=== PATIENT | female | born 1925 | race Caucasian/White ===

== ENCOUNTER 2016-06-19 12:44 | Emergency (ER) | payer OTHER ==
[~2016-06-19] VITALS: Ht 147.3 cm; Wt 54.4 kg
[~2016-06-19 12:44] MED LIST: ASPIRIN CHILDRE81 MG PO; ATENOLOL/CHLORT1 TA1 PO; ATENOLOL100 MG PO; ATORVASTATIN CA40 M1 PO; ATORVASTATIN CA40 MG PO; CARDIZEM CD120 M2 PO; DIAZEPAM PO; ELIQUIS2.5 M1 PO; HYDROCHLOROTH12.5 M3 PO; PERCOCET 325 MG1 TA2 PO; PROAIR HFA8.5 GM INH; ROZEREM8 M1 PO; TEGRETOL 100MG100 MG PO; TEGRETOL200 MG PO; TRAMADOL50 MG PO; TYLENOL325 M1 PO; VITAMIN D1000 IU PO; XANAX0.5 MG PO
--- NOTE | 2016-06-19 13:14 | ED MVC/FALL/TRAUMA COMPLAINT ---
History of Present Illness General Chief Complaint: Laceration Procedure Stated Complaint: FLAP LACERATION TO L LOWER LEG PER DAUGHTER Source: patient, family Exam Limitations: no limitations Allergies Coded Allergies: codeine (UNKNOWN 07/29/15) Reconcile Medications Acetaminophen (Tylenol) 325 MG TABLET 650 MG PO Q6P PRN PAIN Albuterol Sulfate (Proair Hfa) 8.5 GM HFA.AER.AD 2 PUF INH PRN ASTHMA ( Reported) Apixaban (Eliquis) 2.5 MG TABLET 2.5 MG PO BID blood thinner Aspirin (Children's Aspirin) 81 MG CTB 81 MG PO DAILY stroke Atenolol 100 MG TABLET 1 TAB PO DAILY hypertension (Reported) Atorvastatin Calcium (Lipitor) 40 MG TAB 40 MG PO 1700 Stroke Carbamazepine (Tegretol) 200 MG TABLET 1 TAB PO BID neuralgia (Reported) Cephalexin (Keflex) 500 MG CAPSULE 1 CAP PO TID skin Cholecalciferol (Vitamin D3) 1,000 IU TAB 1,000 IU PO DAILY vit d deficiency Diltiazem HCl (Cardizem Cd) 120 MG CAP.ER.24H 180 MG PO DAILY afib Hydrochlorothiazide 12.5 MG CAPSULE 1 CAP PO DAILY DIURETIC (Reported) Mirtazapine 15 MG TABLET 1 TAB PO QPM SLEEP (Reported) Quetiapine Fumarate 50 MG TABLET 1 TAB PO QPM SLEEP (Reported) Ramelteon (Rozerem) 8 MG TABLET 8 MG PO AT BEDTIME sleep Triage Note: PT TO ED WITH DAUGHTER FOR SKIN TEAR TO RIGHT ARREDONDO. HAPPENED THIS AM. PT CUT LEG ON A METAL BAR. UNKNOWN LAST TETANUS SHOT. PT IS ON ELIQUIS. Triage Nurses Notes Reviewed? yes HPI: Patient is an 89-year-old female brought in by her daughter for evaluation of wound to her left anterior leg. Patient reportedly tried to climb out of bed at approximately 3 AM this morning when her leg hit against the metal part of the bed causing a skin flap wound. Pain is minimal at rest, worsens with palpation. Patient's family member clean the area with alcohol this morning. Patient's visiting nurse came to the house this morning and recommended that the patient come to the emergency department for further evaluation. Unknown last tetanus immunization. Patient takes Eliquis, bleeding resolved prior to arrival. Denies head injury, decreased range of motion of the lower extremity. (PERCY LEIGH) Vital Signs & Intake/Output Vital Signs & Intake/Output Vital Signs Date Time Temp Pulse Resp B/P Pulse O2 O2 Flow FiO2 Ox Delivery Rate 06/19 1420 97.6 65 18 114/65 97 Room Air Room Air 06/19 1258 97.5 66 20 114/66 96 Room Air Past History Travel History Traveled to [place] past 21 day No Medical History Any Pertinent Medical History? 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 MOTHER ( AT 68 CVA). FATHER (ALCOHOL USE, DESEASED AT 72). Hx Contributory? No (PERCY LEIGH) Review of Systems Review of Systems Constitutional: Reports: no symptoms. Cardiovascular: Denies: chest pain. Gastrointestinal/Abdominal: Denies: abdominal pain. Musculoskeletal: Reports: see HPI. Skin: Reports: see HPI. Neurological/Psychological: Denies: numbness. (PERCY LEIGH) Physical Exam Physical Exam General Appearance: well developed/nourished, alert, awake Head: atraumatic Eyes: Bilateral: normal appearance. Ears, Nose, Throat, Mouth: hearing grossly normal Neck: normal inspection, full range of motion Respiratory: no respiratory distress Back: normal range of motion Extremities: See diagram. Wound to left mid anterior leg 9 cm x 10 cm "V" shaped superficial skin tear laceration. No visible or palpable foreign body. No active bleeding. Mild tenderness Neurologic/Psych: awake, alert Skin: warm/dry Diagram Body: 1) 9 cm 2) 10 cm Core Measures ACS in differential dx? No Severe Sepsis Present: No Septic Shock Present: No (PERCY LEIGH) Progress Differential Diagnosis: skin tear, foreign body, fracture Plan of Care: Discussed with Dr. Harper. Skin tear superficial. Does not appear that the wound would be amenable to sutures. Area prepped with Betadine, cleansed with sterile water. Steri-Strips placed across wound. Discussed with patient's daughter importance of wound care follow-up. Discussed with them providing a prescription for antibiotics if the area begins to show any signs of infection to then initiate antibiotics. W-10 filled out for home wound care nursing care. (PERCY LEIGH) Plan of Care: Discussed with Dr. Harper. Skin tear superficial. Does not appear that the wound would be amenable to sutures. Area prepped with Betadine, cleansed with sterile water. Steri-Strips placed across wound. Discussed with patient's daughter importance of wound care follow-up. Discussed with them providing a prescription for antibiotics if the area begins to show any signs of infection to then initiate antibiotics. W-10 filled out for home wound care nursing care. Departure Departure Time of Disposition: 1345 Disposition: HOME OR SELF CARE Condition: Stable Clinical Impression Primary Impression: Skin tear of left lower leg without complication Qualifiers: Encounter type: initial encounter Qualified Code: S81.812A - Laceration without foreign body, left lower leg, initial encounter Referrals: COBY BOLANOS MD (PCP/Family) Additional Instructions: Steri-Strips will flake off on their own. Change the dressing over the Steri- Strips daily. Follow-up with the wound care center within 1-2 weeks for recheck and further evaluation. Call in the morning for appointment. Return to the emergency department if redness spreading, fevers, pus from the wound, or worsening of symptoms. you are being provided with a prescription for keflex. I would not recommend starting this antibiotic unless there are any signs of developing infection. Departure Forms: Customer Survey General Discharge Information Prescriptions: Current Visit Scripts Cephalexin (Keflex) 1 CAP PO TID #21 CAP (PERCY LEIGH) PA/SOFTWARE ENGINEERING PROJECT MANAGER Co-Sign Statement Statement: ED Attending supervision documentation- [X] I saw and evaluated the patient. I have also reviewed all the pertinent lab results and diagnostic results. I agree with the findings and the plan of care as documented in the PA's/SOFTWARE ENGINEERING PROJECT MANAGER's documentation. [X] I have reviewed the ED Record and agree with the PA's/SOFTWARE ENGINEERING PROJECT MANAGER's documentation. [] Additions or exceptions (if any) to the PAs/SOFTWARE ENGINEERING PROJECT MANAGER's note and plan are summarized below: [] (LILLIAN PEPE,LANETTE)
[2016-06-19] MEDS ORDERED: KEFLEX500 M1 PO (13:48)
[2016-06-19] MEDS ORDERED: MIRTAZAPINE15 M2 PO (14:16)
[2016-06-19] MEDS ORDERED: QUETIAPINE FUMA50 M1 PO (14:17)
[2016-06-19] MEDS ORDERED: VITAMIN D31000 UNI1 PO (14:17)
[2016-06-19 14:20] VITALS: BP 114/65
--- NOTE | 2016-06-19 14:57 | NUR ---
2/4 CASE MGMT- SPO[facility] WITH [facility] FAXED FOR WOUND CARE.
== END 2016-06-19 14:35 ==
LOC: ERH 12:44
DX: S81.812A Laceration without foreign body, left lower leg, initial encounter (principal); W22.03XA Walked into furniture, initial encounter; Y92.003 Bedroom of unspecified non-institutional (private) residence as the place of occurrence of the external cause
CPT/HCPCS: 90471; 90714

== ENCOUNTER 2016-07-06 10:22 | Emergency (ER) | payer OTHER ==
[~2016-07-06] VITALS: Ht 147.3 cm; Wt 54.4 kg
[~2016-07-06 10:22] MED LIST changes: +KEFLEX500 M1 PO; +MIRTAZAPINE15 M2 PO; +QUETIAPINE FUMA50 M1 PO; +VITAMIN D31000 UNI1 PO
[2016-07-06] MEDS ORDERED: ELIQUIS2.5 M1 PO (10:50)
[2016-07-06] MEDS ORDERED: ADVIL200 M2 PO (10:53)
[2016-07-06] MEDS ORDERED: MULTI-DAY VITA1 EACH PO (10:54)
--- NOTE | 2016-07-06 11:05 | ED INFLUENZA/URI COMPLAINT ---
History of Present Illness General Chief Complaint: General Adult Stated Complaint: BIBA FAILURE TO THRIVE,DEHYDRATION Source: patient, family Exam Limitations: dementia Vital Signs & Intake/Output Vital Signs & Intake/Output Vital Signs Date Time Temp Pulse Resp B/P Pulse O2 O2 Flow FiO2 Ox Delivery Rate 07/06 1522 97.2 68 18 136/66 95 Room Air 07/06 1224 97.1 70 16 130/63 93 Room Air 07/06 1055 95 Room Air 07/06 1028 96.4 63 18 143/67 95 Room Air ED Intake and Output 07/07 0000 07/06 1200 Intake Total 1000 Output Total Balance 1000 Intake, IV 1000 Patient 120 lb Weight Allergies Coded Allergies: codeine (UNKNOWN 07/29/15) Reconcile Medications Acetaminophen (Tylenol) 325 MG TABLET 650 MG PO Q6P PRN PAIN Albuterol Sulfate (Proair Hfa) 8.5 GM HFA.AER.AD 2 PUF INH PRN ASTHMA ( Reported) Alprazolam (Xanax) 0.5 MG TABLET 1 TAB PO QHS PRN INSOMINA Apixaban (Eliquis) 2.5 MG TABLET 1 TAB PO D HEART (Reported) Aspirin (Children's Aspirin) 81 MG CTB 81 MG PO DAILY stroke Atenolol 100 MG TABLET 1 TAB PO DAILY hypertension (Reported) Atorvastatin Calcium (Lipitor) 40 MG TAB 40 MG PO 1700 Stroke Cholecalciferol (Vitamin D3) 1,000 IU TAB 1,000 IU PO DAILY vit d deficiency Diltiazem HCl (Cardizem Cd) 120 MG CAP.ER.24H 180 MG PO DAILY afib Hydrochlorothiazide 12.5 MG CAPSULE 1 CAP PO DAILY DIURETIC (Reported) Ibuprofen (Advil) 200 MG TABLET 200 MG PO EVERY 6HRS- NEEDED PAIN (Reported ) Mirtazapine 15 MG TABLET 1 TAB PO QPM SLEEP (Reported) Multivitamin (Multi-Day Vitamins) 1 EACH TABLET 1 TAB PO DAILY SUPPLEMENT ( Reported) Ramelteon (Rozerem) 8 MG TABLET 8 MG PO AT BEDTIME sleep Triage Note: PT BIBA FROM HOME FOR FAILURE TO THRIVE. PER VISITING NURSE PT HAS HAD POOR PO INTAKE X THE PAST 3 DAYS. PT ARRIVES WITH NO COMPLAINTS. ALERT TO BASELINE. PT HAS NO COMPLAINTS. IV EST BY EMS. AWAITING EVAL. Triage Nurses Notes Reviewed? yes HPI: 89-year-old female, history of dementia, CVA with chronic aphasia, here with her daughter, who along with her daughter, cancer patient. She lives with the other daughter. She is here with concerns of failure to thrive. Decreased appetite, poor by mouth intake for the last 3-5 days, decreased activity. She has had a cough and upper respiratory congestion, poor by mouth intake. History of urinary tract infection 2 weeks ago which was treated with antibiotics. Patient is not getting up and walking around or getting out of bed as much as usual. They deny any worsening confusion or dementia. Symptoms are moderate. They feel as though she is unsafe at home (PERCY WARD) Past History Travel History Traveled to [place] past 21 day No Medical History Any Pertinent Medical History? 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 MOTHER ( AT 68 CVA). FATHER (ALCOHOL USE, DESEASED AT 72). Hx Contributory? No (PERCY WARD) Review of Systems Review of Systems Constitutional: Reports: see HPI. EENTM: Reports: see HPI. Respiratory: Reports: see HPI. Cardiovascular: Reports: no symptoms. GI: Reports: no symptoms. Genitourinary: Reports: no symptoms. Musculoskeletal: Reports: no symptoms. Skin: Reports: no symptoms. Neurological/Psychological: Reports: see HPI. Hematologic/Endocrine: Reports: no symptoms. Immunologic/Allergic: Reports: no symptoms. All Other Systems: Reviewed and Negative (PERCY WARD) Physical Exam Physical Exam Ears, Nose, Throat: DRY MUCOUS MEMBRANES Comments: Well-developed well-nourished, elderly female looks stated age, pleasantly confused HEENT: Atraumatic, extraocular motion intact Neck: Supple, no lymphadenopathy Back: Nontender Respiratory: No respiratory distress, mild crackles throughout both lungs lower lobes Heart: Regular rate and rhythm no murmur Abdomen: Soft nontender nondistended Extremities: No edema, full range of motion, left anterior lower leg with a healing skin tear Neuro: Alert and confused, at baseline per her daughter Psych: Mood affect at baseline per her daughter Skin: Warm and dry, no rash on exposed skin Core Measures Severe Sepsis Present: No Septic Shock Present: No (SEBLE ARAIZA,PERCY) Progress Differential Diagnosis: influenza, meningitis, neutropenia, otitis, pneumonia, pharyngitis, sinusitis, renal failure, dehydration, failure to thrive, sepsis Plan of Care: Orders Procedure Date/time Status CULTURE,URINE 07/06 1048 Active URINALYSIS 07/06 1048 Complete MAGNESIUM 07/06 1048 Complete COMPREHENSIVE METABOLIC PANEL 07/06 1048 Complete CBC WITHOUT DIFFERENTIAL 07/06 1048 Complete EKG 07/06 1048 Active Laboratory Tests 07/06/16 1157: CBC w Diff NO MAN DIFF REQ, RBC 3.84 L, MCV 80.9 L, MCH 26.4 L, RDW 18.4 H, MPV 9.3, Gran % 67.1, Lymphocytes % 14.5 L, Monocytes % 11.8 H, Eosinophils % 4.9, Basophils % 1.7, Absolute Granulocytes 7.6 H, Absolute Lymphocytes 1.6, Absolute Monocytes 1.3 H, Absolute Eosinophils 0.6, Absolute Basophils 0.2, PUBS MCHC 32.6 L 07/06/16 1128: Urine Color YEL, Urine Clarity CLEAR, Urine pH 6.0, Ur Specific [place] 1.020, Urine Protein TRACE H, Urine Ketones NEG, Urine Nitrite NEG, Urine Bilirubin NEG, Urine Urobilinogen 0.2, Ur Leukocyte Esterase NEG, Ur Microscopic SEDIMENT EXAMINED, Urine RBC 25-50 H, Urine WBC RARE, Ur Epithelial Cells RARE, Hyaline Casts 1-3 H, Urine Mucus FEW, Urine Hemoglobin LARGE H, Urine Glucose NEG 07/06/16 1113: Anion Gap 7, Estimated GFR 59 L, BUN/Creatinine Ratio 30.0 H, Glucose 91, Calcium 8.2 L, Magnesium 2.0, Total Bilirubin 0.7, AST 21, ALT 23, Alkaline Phosphatase 77, Total Protein 6.4, Albumin 2.8 L, Globulin 3.6, Albumin/ Globulin Ratio 0.8 L Microbiology 07/06 1127 URINE ROUT: Urine Culture - RECD Diagnostic Imaging: Viewed by Me: Radiology Read. Discussed w/RAD: Radiology Read. CXR Impression: PATIENT: GALLITO WRIGHT PRESENT AGE: 89 PATIENT ACCOUNT NO: [id number] : [birth year] LOCATION: [facility] ORDERING PHYSICIAN: PERCY ARAIZA SERVICE DATE: 07/06/16 EXAM TYPE: RAD - XRY-PORTABLE CHEST XRAY EXAMINATION: XR PORTABLE CHEST CLINICAL INFORMATION: Cough, evaluate for pneumonia COMPARISON: 11/01/2015 TECHNIQUE: Portable AP view of the chest was obtained. FINDINGS: Lung volumes are symmetric. No focal consolidation is seen. No evidence of pneumothorax, pleural effusion, or pulmonary edema. The cardiac silhouette remains prominent. There is a redemonstrated moderate sized hiatal hernia. Calcification is present at the aortic arch. No acute osseous findings are seen. IMPRESSION: No acute cardiopulmonary findings. Hiatal hernia. DICTATED BY: MAN HERNANDEZ MD DATE/TIME DICTATED:07/06/161120 RETORT FEEDER GROUND BONE:NGUYEN Initial ED EKG: rate (60), AFIB, nonspecific ST T wave chg Rhythm Strip: atrial fibrillation Comments: Patient treated with 1 L of IV fluids. Infectious and dehydration workup started. Discussed results with patient and HER-2 daughters with case management at bedside. Patient has been ambulatory in the department, their main concern is that that she is becoming more and more difficult to manage in the evening time. I do not have a significant medical reason to keep her into the hospital as she is not acutely ill, her laboratory values are largely unremarkable, she has mild dehydration which she was given IV fluids. She has no urinary tract infection and no signs of pneumonia on x-ray. She has been on trazodone in the past for sleep and according to the daughters that gave her diarrhea and she was unable tolerate the medication. She was previously on Xanax with affect and we will place her back on Xanax. They were encouraged to look into long-term care facilities if she is becoming increasingly difficult to manage at home. They understand and agree with plan to take her home and follow-up with her primary care doctor in the next week or 2 and for possible refill of Xanax if this is effective in helping her with sundowning (PERCY WARD) Departure Departure Disposition: HOME OR SELF CARE Condition: Stable Clinical Impression Primary Impression: Dehydration Secondary Impressions: Dementia Qualifiers: Dementia type: unspecified type Dementia behavioral disturbance: with behavioral disturbance Qualified Code: F03.91 - Unspecified dementia with behavioral disturbance Referrals: COBY BOLANOS MD (PCP/Family) Additional Instructions: XANAX AT NIGHT FOR SLEEP. FOLLOW UP WITH YOUR DOCTOR FOR FURTHER EVALUATION AND TREATMENT Departure Forms: Customer Survey General Discharge Information Prescriptions: Current Visit Scripts Alprazolam (Xanax) 1 TAB PO QHS PRN INSOMINA #10 TAB (PERCY WARD) PA/ORACLE FINANCIALS DEVELOPER Co-Sign Statement Statement: ED Attending supervision documentation- x I saw and evaluated the patient. I have also reviewed all the pertinent lab results and diagnostic results. I agree with the findings and the plan of care as documented in the PA's/ORACLE FINANCIALS DEVELOPER's documentation. [] I have reviewed the ED Record and agree with the PA's/ORACLE FINANCIALS DEVELOPER's documentation. [] Additions or exceptions (if any) to the PAs/ORACLE FINANCIALS DEVELOPER's note and plan are summarized below: [] (FRED PEPE,CHAY)
--- NOTE | 2016-07-06 11:25 | RADIOLOGY REPORT ---
EXAMINATION: XR PORTABLE CHEST CLINICAL INFORMATION: Cough, evaluate for pneumonia COMPARISON: 11/01/2015 TECHNIQUE: Portable AP view of the chest was obtained. FINDINGS: Lung volumes are symmetric. No focal consolidation is seen. No evidence of pneumothorax, pleural effusion, or pulmonary edema. The cardiac silhouette remains prominent. There is a redemonstrated moderate sized hiatal hernia. Calcification is present at the aortic arch. No acute osseous findings are seen. IMPRESSION: No acute cardiopulmonary findings. Hiatal hernia.
[2016-07-06 12:08] LABS: ABSOLUTE GRANULOCYTE CT 7.6 /CUMM (1.4-6.5); ABSOLUTE LYMPH COUNT 1.6 /CUMM (1.2-3.4); MEAN CORPUSCULAR HGB 26.4 PG (27.0-31.0)
[2016-07-06 12:18] LABS: ABSOLUTE BASOPHIL COUNT 0.2 /CUMM (0.0-0.2); ABSOLUTE EOSINOPHIL COUNT 0.6 /CUMM (0.0-0.7); ABSOLUTE MONOCYTE COUNT 1.3 /CUMM (0.10-0.60); BASOPHIL % 1.7 % (0.0-2.0); EOSINOPHIL % 4.9 % (0-5); GRANULOCYTE % 67.1 % (42.2-75.2); HEMATOCRIT 31.1 % (37-47); MEAN CORPUSCULAR HGB CONC 32.6 G/DL (33.0-37.0); MEAN CORPUSCULAR VOLUME 80.9 FL (81.0-99.0); MEAN PLATELET VOLUME 9.3 FL (7.4-10.4); PLATELET COUNT 413 /CUMM (130-400); RBC DISTRIBUTION WIDTH 18.4 % (11.5-14.5); RED BLOOD CELL CT 3.84 /CUMM (4.20-5.40); WHITE BLOOD CELL COUNT 11.3 /CUMM (4.8-10.8)
[2016-07-06] MEDS ORDERED: XANAX0.5 M1 PO (15:00)
[2016-07-06 15:22] VITALS: BP 136/66
== END 2016-07-06 15:23 ==
LOC: ERH 10:22
PROVIDERS: Physician Assistant Surgical
DX: E86.0 Dehydration (principal); F03.90 Unspecified dementia, unspecified severity, without behavioral disturbance, psychotic disturbance, mood disturbance, and anxiety; R05 Cough; I10 Essential (primary) hypertension; Z87.891 Personal history of nicotine dependence
CPT/HCPCS: 81001; 87086; 93005; 93010

== ENCOUNTER 2016-08-05 04:54 | Inpatient (IN) | payer OTHER ==
[~2016-08-05] VITALS: Ht 154.9 cm; Wt 54.4 kg
[~2016-08-05 04:54] MED LIST changes: +ADVIL200 M2 PO; +MULTI-DAY VITA1 EACH PO; +XANAX0.5 M1 PO
--- NOTE | 2016-08-05 04:59 | ED MVC/FALL/TRAUMA COMPLAINT ---
History of Present Illness General Chief Complaint: Fall Stated Complaint: HIP PAIN S/P FALL Source: old records, EMS Exam Limitations: dementia Vital Signs & Intake/Output Vital Signs & Intake/Output Vital Signs Date Time Temp Pulse Resp B/P Pulse O2 O2 Flow FiO2 Ox Delivery Rate 08/05 0652 97.5 67 20 187/84 92 Room Air 08/05 0505 Room Air 08/05 0458 97.2 85 20 184/84 95 Room Air Allergies Coded Allergies: codeine (UNKNOWN 07/29/15) Reconcile Medications Acetaminophen (Tylenol) 325 MG TABLET 650 MG PO Q6P PRN PAIN Albuterol Sulfate (Proair Hfa) 8.5 GM HFA.AER.AD 2 PUF INH PRN ASTHMA ( Reported) Alprazolam (Xanax) 0.5 MG TABLET 1 TAB PO QHS PRN INSOMINA Apixaban (Eliquis) 2.5 MG TABLET 1 TAB PO D HEART (Reported) Aspirin (Children's Aspirin) 81 MG CTB 81 MG PO DAILY stroke Atenolol 100 MG TABLET 1 TAB PO DAILY hypertension (Reported) Atorvastatin Calcium (Lipitor) 40 MG TAB 40 MG PO 1700 Stroke Cholecalciferol (Vitamin D3) 1,000 IU TAB 1,000 IU PO DAILY vit d deficiency Diltiazem HCl (Cardizem Cd) 120 MG CAP.ER.24H 180 MG PO DAILY afib Hydrochlorothiazide 12.5 MG CAPSULE 1 CAP PO DAILY DIURETIC (Reported) Ibuprofen (Advil) 200 MG TABLET 200 MG PO EVERY 6HRS- NEEDED PAIN (Reported ) Mirtazapine 15 MG TABLET 1 TAB PO QPM SLEEP (Reported) Multivitamin (Multi-Day Vitamins) 1 EACH TABLET 1 TAB PO DAILY SUPPLEMENT ( Reported) Ramelteon (Rozerem) 8 MG TABLET 8 MG PO AT BEDTIME sleep Triage Nurses Notes Reviewed? yes HPI: Patient lives at home with her family. Patient has dementia and is unable to provide any history. Patient had an unwitnessed fall out of bed. Patient has side reveals but she is known to attempt to climb over the rails. Patient just family heard a crash and then found her on the floor. Patient was awake to her baseline upon family arrival at her bedside. Patient grabbed her left hip when her family got her up to a wheelchair. Upon EMS arrival they found continued pain in the left hip which seemed like it got worse with movement. Unknown about radiation, quality or quantity of the pain. (ADITYA PEPE,NERIS Geiger) Past History Medical History Any Pertinent Medical History? see below for history Neurological: CVA, APHASIA NEURALGIA EENT: tooth extraction bad teeth since 5 years Cardiovascular: hypertension, hyperlipidemia, bilateral leg edema Respiratory: NONE Gastrointestinal: NONE, colitis Hepatic: NONE Renal: NONE Musculoskeletal: chronic back pain, osteoarthritis, spinal stenosis Psychiatric: NONE Endocrine: NONE Blood Disorders: NONE Cancer(s): NONE [employer]/Reproductive: NONE History of MRSA: No History of VRE: No History of CDIFF: No Pneumonia Vaccine: 09/29/00 Tetanus Vaccine: 06/19/16 Surgical History Surgical History: non-contributory Psychosocial History Who do you live with Daughter Services at Home None What is your primary language Turkish Tobacco Use: Cognitive Impairment Family History Family History, If Any: BROTHER (THROAT CANCER, AT AGE 52 SECONDARY TO SMOKING). MOTHER ( AT 68 CVA). FATHER (ALCOHOL USE, DESEASED AT 72). Hx Contributory? No (ADITYA PEPE,NERIS Geiger) Review of Systems Review of Systems Constitutional: Reports: no symptoms. Musculoskeletal: Reports: see HPI, joint pain. (ADITYA PEPE,NERIS Geiger) Physical Exam Physical Exam General Appearance: well developed/nourished, awake, moderate distress Head: atraumatic, normal appearance Eyes: Bilateral: PERRL, EOMI. Ears, Nose, Throat, Mouth: hearing grossly normal, moist mucous membrane Neck: normal inspection, supple, full range of motion, no midline tenderness Respiratory: normal breath sounds, chest non-tender, no respiratory distress, lungs clear Cardiovascular: regular rate/rhythm, normal peripheral pulses Gastrointestinal: normal bowel sounds, soft, non-tender, no organomegaly Back: normal inspection, normal range of motion Extremities: PAIN TO LEFT HIP WITH ROM Neurologic/Psych: awake Skin: intact, normal color, warm/dry Core Measures ACS in differential dx? No Severe Sepsis Present: No Septic Shock Present: No (ADITYA PEPE,NERIS Geiger) Progress Differential Diagnosis: C/T/L spine injury, pelvis injury Plan of Care: Orders Procedure Date/time Status Saline Lock 08/05 728 Active Misc Message 08/05 728 Active ED Holding Orders 08/05 728 Active Vital Signs 08/05 728 Active Code Status 03/23 0729 Active EKG 08/05 632 Active Admit to inpatient 08/05 0632 Active Parada, Insertion/Removal/Asses 08/05 599 Active CULTURE,URINE 08/05 599 Active URINALYSIS 08/06 555 Complete PARTIAL THROMBOPLASTIN TIME 08/06 555 Complete PROTHROMBIN TIME 08/06 555 Complete COMPREHENSIVE METABOLIC PANEL 08/06 555 Complete CBC WITHOUT DIFFERENTIAL 08/06 555 Complete TYPE & SCREEN (NOT X-MATCH) 08/06 555 Active Laboratory Tests 08/05/16 0645: Urinalysis LIGHT H, Urine Color YEL, Urine Clarity CLEAR, Urine pH 6.5, Ur Specific [place] 1.015, Urine Protein NEG, Urine Ketones NEG, Urine Nitrite NEG, Urine Bilirubin NEG, Urine Urobilinogen 0.2, Ur Leukocyte Esterase NEG, Ur Microscopic SEDIMENT EXAMINED, Urine RBC 10-15 H, Urine WBC RARE, Urine Bacteria FEW H, Urine Hemoglobin MOD H, Urine Glucose NEG 08/05/16 0631: CBC w Diff MAN DIFF ORDERED, RBC 4.09 L, MCV 79.5 L, MCH 25.4 L, RDW 17.2 H, MPV 8.6, Gran % 92.4 H, Lymphocytes % 3.2 L, Monocytes % 3.1, Eosinophils % 1.1, Basophils % 0.2, Absolute Granulocytes 23.0 H, Segmented Neutrophils 91 H , Band Neutrophils 1, Absolute Lymphocytes 0.8 L, Lymphocytes 3 L, Monocytes 2 , Absolute Monocytes 0.8 H, Eosinophils 3, Absolute Eosinophils 0.3, Absolute Basophils 0, Platelet Estimate ADEQUATE, Polychromasia 1+, Hypochromic- Microcytic 1+, Poikilocytosis 2+, Ovalocytes 1+, Arbuckle Cells FEW, Elliptocytes FEW, Schistocytes RARE, PUBS MCHC 32.0 L, Fld Total RBCs Counted 100 08/05/16 0620: Anion Gap 7, Estimated GFR 59 L, BUN/Creatinine Ratio 30.0 H, Glucose 144 H, Calcium 9.2, Total Bilirubin 0.5, AST 30, ALT 32, Alkaline Phosphatase 97, Total Protein 7.2, Albumin 3.2 L, Globulin 4.0, Albumin/Globulin Ratio 0.8 L, PT 12.9 H, INR 1.23 H, APTT 29 Microbiology 08/05 644 URINE ROUT: Urine Culture - RECD Diagnostic Imaging: Viewed by Me: Radiology Read, CT Scan. Discussed w/RAD: Radiology Read, CT Scan. Radiology Impression: PATIENT: GALLITO WRIGHT PRESENT AGE: 89 PATIENT ACCOUNT NO: [id number] : [birth year] LOCATION: [facility] ORDERING PHYSICIAN: NERIS BURGESS MD SERVICE DATE: 08/05/16 EXAM TYPE: CAT - CT CERV SPINE WO IV CONTRAST; CT HEAD WO IV CONTRAST EXAMINATION: CT HEAD WITHOUT CONTRAST CT CERVICAL SPINE WITHOUT CONTRAST CLINICAL INFORMATION: Fall. COMPARISON: CT head 11/03/2015 TECHNIQUE: Imaging was performed from the skull base to vertex without intravenous administration of contrast. In addition, helical noncontrast CT imaging was acquired through the cervical spine and source images were reviewed along with axial reconstructions and sagittal and coronal MPRs. DLP: 960.52 mGy-cm FINDINGS: There is motion throughout the study limiting exam HEAD: No acute intracranial hemorrhage. No mass effect. No extra- axial collection. There is atrophy with prominence of the ventricles and the sulci and hypodensity of the periventricular white matter due to chronic small vessel ischemic disease. There is vascular calcifications of the internal carotid arteries bilaterally. There is multifocal encephalomalacia from old infarct in the left frontal and left parietal occipital lobe unchanged since prior study. There is also focal encephalomalacia now in the right parietal- occipital lobe adjacent to the trigone of the right lateral ventricle which is more pronounced than was seen on the prior CAT scan. The low-attenuation though suggest this is also an old infarct. Air-fluid level opacifies about 50% volume of the left sphenoid sinus. The right sphenoid sinus is entirely opacified. The mastoid air cells and middle ear cavities are normally aerated. CERVICAL SPINE: There is no evidence of acute cervical spine fracture. . No pre- or paravertebral soft tissue abnormality is identified. Multilevel degenerative spondylosis of the spine. Disc height narrowing C4-C5 to the disc level of C6-C7 with endplate spurs. There is facet joint arthrosis throughout the cervical spine most pronounced at the upper cervical spine facet joints bilaterally. Lung apices clear. Heavy vascular calcification of thoracic aorta IMPRESSION: Motion limits CAT scan of the head and cervical spine. 1. No acute intracranial pathology. Sinus disease of the sphenoid sinuses bilateral 2. No CT evidence of acute cervical spine fracture or traumatic subluxation. Multilevel degenerative spondylosis of cervical spine. DICTATED BY: BISHOP DIETRICH MD DATE/TIME DICTATED: 08/05/16535 LIBRARY CLERK:NGUYEN DATE/TIME TRANSCRIBED:08/05/16535 CONFIDENTIAL, DO NOT COPY WITHOUT APPROPRIATE AUTHORIZATION. <Electronically signed in Other Vendor System> SIGNED BY: BISHOP DIETRICH MD 08/05/16 0544, PATIENT: GALLITO WRIGHT PRESENT AGE: 89 PATIENT ACCOUNT NO: [id number] : [birth year] LOCATION: ER ORDERING PHYSICIAN: NERIS BURGESS MD SERVICE DATE: 08/05/16 EXAM TYPE: RAD - XRY-HIP 2-3 VIEWS, LEFT EXAMINATION: XR HIP, LEFT CLINICAL INFORMATION: Fall. Pain. COMPARISON: Left hip 10/10/2010 TECHNIQUE: Two views of the left hip. FINDINGS: Comminuted intratrochanteric fracture of left femur. Femoral head remains seated in the acetabulum. There is superior subluxation of the distal fracture fragment. Focal sclerotic lesion of the left sacral ala at the inferior sacroiliac joint . This was noted present on the prior left radiograph of the hip of 10/10/2010. This measures 2.3 x 1.7 cm. IMPRESSION: Comminuted intratrochanteric fracture of left femur. DICTATED BY: BISHOP DIETRICH MD DATE/TIME DICTATED:08/05/16609 LIBRARY CLERK:NGUYEN DATE/TIME TRANSCRIBED:08/05/16609 CONFIDENTIAL, DO NOT COPY WITHOUT APPROPRIATE AUTHORIZATION. <Electronically signed in Other Vendor System> SIGNED BY: BISHOP DIETRICH MD 08/05/1616 CXR Impression: PATIENT: GALLITO WRIGHT PRESENT AGE: 89 PATIENT ACCOUNT NO: [id number] : [birth year] LOCATION: ER ORDERING PHYSICIAN: NERIS BURGESS MD SERVICE DATE: 08/05/16 EXAM TYPE: RAD - XRY-CHEST XRAY, ONE VIEW ONLY EXAMINATION:\H\ \N\XR CHEST CLINICAL INFORMATION: Shortness of breath COMPARISON: Chest x-ray 07/06/2016 TECHNIQUE: AP portable view of the chest was obtained. 5:52 AM FINDINGS: Heart size enlarged. Thoracic aorta is uncoiled with calcifications of wall. Lungs are clear. No pulmonary vascular congestion or pleural effusion. There is a large hiatal hernia present. Compared to prior chest x-ray there is no change. IMPRESSION: No acute abnormality the chest. DICTATED BY: BISHOP DIETRICH MD DATE/TIME DICTATED:08/05/16608 LIBRARY CLERK:NGUYEN DATE/TIME TRANSCRIBED:08/05/16608 CONFIDENTIAL, DO NOT COPY WITHOUT APPROPRIATE AUTHORIZATION. <Electronically signed in Other Vendor System> SIGNED BY: BISHOP DIETRICH MD 08/05/16613 Hand-Off Endorsed To: KIMBERLY CASPER DO Endorsed Time: 710 Pending: other (HOSPITALIST CALLBACK) Comments: D/W DR. POLLARD, PT TO BE ADMITTED TO THE MEDICAL SERVICE AND WILL GO TO THE ER ONCE MEDICALLY CLEARED. (ADITYA PEPE,NERIS Geiger) Departure Departure Disposition: STILL A PATIENT Condition: Stable Clinical Impression Primary Impression: Intertrochanteric fracture of left hip Referrals: COBY BOLANOS MD (PCP/Family) Departure Forms: Customer Survey General Discharge Information Admission Note Documentation of Exam: Documentation of any treatments & extenuating circumstances including Concerns Regarding Discharge (functional status, medication knowledge or non-compliance, living conditions, etc.) that warrant an admission rather than observation: [ Patient requires a medical admission for her hip fracture. Patient is on adequate. Once patient is medically cleared she will require surgery. Patient required pain control.] (ADITYA PEPE,NERIS Geiger) Admission Note Spoke With: VEENA KOHLER MD Documentation of Exam: Documentation of any treatments & extenuating circumstances including Concerns Regarding Discharge (functional status, medication knowledge or non-compliance, living conditions, etc.) that warrant an admission rather than observation: 08/05/16 7:30 AM The patient was signed out to me by Dr. Burgess. He is been admitted to the hospitalist service for hip fracture. Dr. Bhagat is the orthopedist who was informed by Dr. Burgess. (KIMBERLY CASPER DO)
--- NOTE | 2016-08-05 05:44 | CT SCAN REPORT ---
EXAMINATION: CT HEAD WITHOUT CONTRAST CT CERVICAL SPINE WITHOUT CONTRAST CLINICAL INFORMATION: Fall. COMPARISON: CT head 11/03/2015 TECHNIQUE: Imaging was performed from the skull base to vertex without intravenous administration of contrast. In addition, helical noncontrast CT imaging was acquired through the cervical spine and source images were reviewed along with axial reconstructions and sagittal and coronal MPRs. DLP: 960.52 mGy-cm FINDINGS: There is motion throughout the study limiting exam HEAD: No acute intracranial hemorrhage. No mass effect. No extra-axial collection. There is atrophy with prominence of the ventricles and the sulci and hypodensity of the periventricular white matter due to chronic small vessel ischemic disease. There is vascular calcifications of the internal carotid arteries bilaterally. There is multifocal encephalomalacia from old infarct in the left frontal and left parietal occipital lobe unchanged since prior study. There is also focal encephalomalacia now in the right parietal-occipital lobe adjacent to the trigone of the right lateral ventricle which is more pronounced than was seen on the prior CAT scan. The low-attenuation though suggest this is also an old infarct. Air-fluid level opacifies about 50% volume of the left sphenoid sinus. The right sphenoid sinus is entirely opacified. The mastoid air cells and middle ear cavities are normally aerated. CERVICAL SPINE: There is no evidence of acute cervical spine fracture. . No pre- or paravertebral soft tissue abnormality is identified. Multilevel degenerative spondylosis of the spine. Disc height narrowing C4-C5 to the disc level of C6-C7 with endplate spurs. There is facet joint arthrosis throughout the cervical spine most pronounced at the upper cervical spine facet joints bilaterally. Lung apices clear. Heavy vascular calcification of thoracic aorta IMPRESSION: Motion limits CAT scan of the head and cervical spine. 1. No acute intracranial pathology. Sinus disease of the sphenoid sinuses bilateral 2. No CT evidence of acute cervical spine fracture or traumatic subluxation. Multilevel degenerative spondylosis of cervical spine.
--- NOTE | 2016-08-05 06:14 | RADIOLOGY REPORT ---
EXAMINATION:\H\ \N\XR CHEST CLINICAL INFORMATION: Shortness of breath COMPARISON: Chest x-ray 07/06/2016 TECHNIQUE: AP portable view of the chest was obtained. 5:52 AM FINDINGS: Heart size enlarged. Thoracic aorta is uncoiled with calcifications of wall. Lungs are clear. No pulmonary vascular congestion or pleural effusion. There is a large hiatal hernia present. Compared to prior chest x-ray there is no change. IMPRESSION: No acute abnormality the chest.
--- NOTE | 2016-08-05 06:16 | RADIOLOGY REPORT ---
EXAMINATION: XR HIP, LEFT CLINICAL INFORMATION: Fall. Pain. COMPARISON: Left hip 10/10/2010 TECHNIQUE: Two views of the left hip. FINDINGS: Comminuted intratrochanteric fracture of left femur. Femoral head remains seated in the acetabulum. There is superior subluxation of the distal fracture fragment. Focal sclerotic lesion of the left sacral ala at the inferior sacroiliac joint . This was noted present on the prior left radiograph of the hip of 10/10/2010. This measures 2.3 x 1.7 cm. IMPRESSION: Comminuted intratrochanteric fracture of left femur.
[2016-08-05 06:40] LABS: ABSOLUTE BASOPHIL COUNT 0 /CUMM (0.0-0.2); ABSOLUTE EOSINOPHIL COUNT 0.3 /CUMM (0.0-0.7); ABSOLUTE LYMPH COUNT 0.8 /CUMM (1.2-3.4); ABSOLUTE MONOCYTE COUNT 0.8 /CUMM (0.10-0.60); BASOPHIL % 0.2 % (0.0-2.0); EOSINOPHIL % 1.1 % (0-5); GRANULOCYTE % 92.4 % (42.2-75.2); HEMATOCRIT 32.5 % (37-47); MEAN CORPUSCULAR HGB 25.4 PG (27.0-31.0); MEAN CORPUSCULAR VOLUME 79.5 FL (81.0-99.0); MEAN PLATELET VOLUME 8.6 FL (7.4-10.4); PLATELET COUNT 363 /CUMM (130-400); RBC DISTRIBUTION WIDTH 17.2 % (11.5-14.5); RED BLOOD CELL CT 4.09 /CUMM (4.20-5.40); WHITE BLOOD CELL COUNT 24.9 /CUMM (4.8-10.8)
[2016-08-05 07:18] LABS: PT 12.9 SEC (9.4-12.5); PTT 29 SEC (25-37)
--- NOTE | 2016-08-05 07:51 | History & Physical ---
LATISHA PEPE,[facility] 08/05/16 0751: General Information and HPI MD Statement: I have seen and personally examined GALLITO WRIGHT and documented this H&P. The patient is a 89 year old F who presented with a patient stated chief complaint of [FALL]. Source of Information: family, old records Exam Limitations: dementia History of Present Illness: Note- due to the patient's advanced dementia, history of presenting illness was obtained from her daughter Jyotsna, who is also her power of insurance attorney. Per patient's daughter, she has a history of hypertension, atrial fibrillation on Eliquis, advanced dementia. She states that over the course of last couple months despite having bedrails they have noticed that Mrs. Romero does try and climb out of bed and attempt unsafe ambulation. This morning, they found her downstairs on the kitchen floor after they heard someone falling. Upon arriving to the kitchen, they noticed that her mom was lying on the floor next to the kitchen sink. Her only complaint of the time was left hip pain. She was unsure as to how she got there. Denied any head strike or loss of consciousness however the validity of this statement should be taken with a grain of salt considering the fact that she does have advanced dementia. During the time of my evaluation of the patient she was unable to provide a clear history or review of systems secondary to her advanced dementia. Her only complaint was left hip pain. Allergies/Medications Allergies: Coded Allergies: codeine (UNKNOWN 07/29/15) Home Med list Acetaminophen (Tylenol) 325 MG TABLET 650 MG PO Q6P PRN PAIN Albuterol Sulfate (Proair Hfa) 8.5 GM HFA.AER.AD 2 PUF INH PRN ASTHMA ( Reported) Alprazolam (Xanax) 0.5 MG TABLET 1 TAB PO QHS PRN INSOMINA Apixaban (Eliquis) 2.5 MG TABLET 1 TAB PO D HEART (Reported) Aspirin (Children's Aspirin) 81 MG CTB 81 MG PO DAILY stroke Atenolol 100 MG TABLET 1 TAB PO DAILY hypertension (Reported) Atorvastatin Calcium (Lipitor) 40 MG TAB 40 MG PO 1700 Stroke Cholecalciferol (Vitamin D3) 1,000 IU TAB 1,000 IU PO DAILY vit d deficiency Diltiazem HCl (Cardizem Cd) 120 MG CAP.ER.24H 180 MG PO DAILY afib Hydrochlorothiazide 12.5 MG CAPSULE 1 CAP PO DAILY DIURETIC (Reported) Ibuprofen (Advil) 200 MG TABLET 200 MG PO EVERY 6HRS- NEEDED PAIN (Reported ) Mirtazapine 15 MG TABLET 1 TAB PO QPM SLEEP (Reported) Multivitamin (Multi-Day Vitamins) 1 EACH TABLET 1 TAB PO DAILY SUPPLEMENT ( Reported) Ramelteon (Rozerem) 8 MG TABLET 8 MG PO AT BEDTIME sleep Past History Travel History Traveled to [place] past 21 day No Medical History Neurological: CVA, APHASIA NEURALGIA EENT: tooth extraction bad teeth since 5 years Cardiovascular: hypertension, hyperlipidemia, bilateral leg edema Respiratory: NONE Gastrointestinal: NONE, colitis Hepatic: NONE Renal: NONE Musculoskeletal: chronic back pain, osteoarthritis, spinal stenosis Psychiatric: NONE Endocrine: NONE Blood Disorders: NONE Cancer(s): NONE SUPERVISING BROKER/Reproductive: NONE History of MRSA: No History of VRE: No History of CDIFF: No Tetanus Vaccine: 06/19/16 Surgical History Surgical History: non-contributory ECHO Results (as available) EF% 60 Past Family/Social History Family History Relations & Conditions if any BROTHER (THROAT CANCER, AT AGE 52 SECONDARY TO SMOKING). MOTHER ( AT 68 CVA). FATHER (ALCOHOL USE, DESEASED AT 72). Psychosocial History Services at Home: None Review of Systems Review of Systems Constitutional: Reports: see HPI. Exam & Diagnostic Data Last 24 Hrs of Vital Signs/I&O Vital Signs Date Time Temp Pulse Resp B/P Pulse O2 O2 Flow FiO2 Ox Delivery Rate 08/05 0652 97.5 67 20 187/84 92 Room Air 08/05 0505 Room Air 08/05 0458 97.2 85 20 184/84 95 Room Air Intake & Output 08/05 1600 08/05 0800 08/05 0000 Intake Total 0 Output Total 300 Balance -300 Intake, Oral 0 Output, Urine 300 Patient 120 lb Weight Physical Exam General Appearance Alert, Cooperative, Mild Distress Skin has small break downs of skin scattered over both arms HEENT Atraumatic, PERRLA, EOMI Cardiovascular Regular Rate, Normal S1, Normal S2 Lungs Clear to Auscultation, Normal Air Movement Abdomen Normal Bowel Sounds, Soft Extremities left hip tender on palpation Last 24 Hrs of Labs/Fidel: Laboratory Tests 08/05/16 0645: Urinalysis LIGHT H, Urine Color YEL, Urine Clarity CLEAR, Urine pH 6.5, Ur Specific Anderson 1.015, Urine Protein NEG, Urine Ketones NEG, Urine Nitrite NEG, Urine Bilirubin NEG, Urine Urobilinogen 0.2, Ur Leukocyte Esterase NEG, Ur Microscopic SEDIMENT EXAMINED, Urine RBC 10-15 H, Urine WBC RARE, Urine Bacteria FEW H, Urine Hemoglobin MOD H, Urine Glucose NEG 08/05/16 0631: CBC w Diff MAN DIFF ORDERED, RBC 4.09 L, MCV 79.5 L, MCH 25.4 L, RDW 17.2 H, MPV 8.6, Gran % 92.4 H, Lymphocytes % 3.2 L, Monocytes % 3.1, Eosinophils % 1.1, Basophils % 0.2, Absolute Granulocytes 23.0 H, Segmented Neutrophils 91 H , Band Neutrophils 1, Absolute Lymphocytes 0.8 L, Lymphocytes 3 L, Monocytes 2 , Absolute Monocytes 0.8 H, Eosinophils 3, Absolute Eosinophils 0.3, Absolute Basophils 0, Platelet Estimate ADEQUATE, Polychromasia 1+, Hypochromic- Microcytic 1+, Poikilocytosis 2+, Ovalocytes 1+, Shari Cells FEW, Elliptocytes FEW, Schistocytes RARE, PUBS MCHC 32.0 L, Fld Total RBCs Counted 100 08/05/16 0620: Anion Gap 7, Estimated GFR 59 L, BUN/Creatinine Ratio 30.0 H, Glucose 144 H, Calcium 9.2, Total Bilirubin 0.5, AST 30, ALT 32, Alkaline Phosphatase 97, Troponin I < 0.01, Total Protein 7.2, Albumin 3.2 L, Globulin 4.0, Albumin/ Globulin Ratio 0.8 L, PT 12.9 H, INR 1.23 H, APTT 29 Microbiology 08/05 644 URINE ROUT: Urine Culture - RECD Diagnostic Data EKG Results Rate 69, DC 181, QRS 82, QTC 463 Sinus rhythm, old T wave inversions in leads aVF, V3, V4, V5, V6 CXR Results PATIENT: GALLITO WRIGHT PRESENT AGE: 89 PATIENT ACCOUNT NO: [id number] : [birth year] LOCATION: [facility] ORDERING PHYSICIAN: NERIS BURGESS MD SERVICE DATE: 08/05/16 EXAM TYPE: RAD - XRY-CHEST XRAY, ONE VIEW ONLY EXAMINATION:\H\ \N\XR CHEST CLINICAL INFORMATION: Shortness of breath COMPARISON: Chest x-ray 07/06/2016 TECHNIQUE: AP portable view of the chest was obtained. 5:52 AM FINDINGS: Heart size enlarged. Thoracic aorta is uncoiled with calcifications of wall. Lungs are clear. No pulmonary vascular congestion or pleural effusion. There is a large hiatal hernia present. Compared to prior chest x-ray there is no change. IMPRESSION: No acute abnormality the chest. DICTATED BY: BISHOP DIETRICH MD DATE/TIME DICTATED:08/05/16608 SUPERVISOR CUSTOMER SERVICES:NGUYEN DATE/TIME TRANSCRIBED:08/05/16608 CONFIDENTIAL, DO NOT COPY WITHOUT APPROPRIATE AUTHORIZATION. <Electronically signed in Other Vendor System> SIGNED BY: BISHOP DIETRICH MD 08/05/16613 Other Results PATIENT: GALLITO WRIGHT PRESENT AGE: 89 PATIENT ACCOUNT NO: [id number] : [birth year] LOCATION: [facility] ORDERING PHYSICIAN: NERIS BURGESS MD SERVICE DATE: 08/05/16 EXAM TYPE: RAD - XRY-HIP 2-3 VIEWS, LEFT EXAMINATION: XR HIP, LEFT CLINICAL INFORMATION: Fall. Pain. COMPARISON: Left hip 10/10/2010 TECHNIQUE: Two views of the left hip. FINDINGS: Comminuted intratrochanteric fracture of left femur. Femoral head remains seated in the acetabulum. There is superior subluxation of the distal fracture fragment. Focal sclerotic lesion of the left sacral ala at the inferior sacroiliac joint . This was noted present on the prior left radiograph of the hip of 10/10/2010. This measures 2.3 x 1.7 cm. IMPRESSION: Comminuted intratrochanteric fracture of left femur. DICTATED BY: BISHOP DIETRICH MD DATE/TIME DICTATED:08/05/16609 SUPERVISOR CUSTOMER SERVICES:NGUYEN DATE/TIME TRANSCRIBED:08/05/16609 CONFIDENTIAL, DO NOT COPY WITHOUT APPROPRIATE AUTHORIZATION. <Electronically signed in Other Vendor System> SIGNED BY: BISHOP DIETRICH MD 08/05/16615 PATIENT: GALLITO WRIGHT PRESENT AGE: 89 PATIENT ACCOUNT NO: [id number] : [birth year] LOCATION: [facility] ORDERING PHYSICIAN: NERIS BURGESS MD SERVICE DATE: 08/05/16 EXAM TYPE: CAT - CT CERV SPINE WO IV CONTRAST; CT HEAD WO IV CONTRAST EXAMINATION: CT HEAD WITHOUT CONTRAST CT CERVICAL SPINE WITHOUT CONTRAST CLINICAL INFORMATION: Fall. COMPARISON: CT head 11/03/2015 TECHNIQUE: Imaging was performed from the skull base to vertex without intravenous administration of contrast. In addition, helical noncontrast CT imaging was acquired through the cervical spine and source images were reviewed along with axial reconstructions and sagittal and coronal MPRs. DLP: 960.52 mGy-cm FINDINGS: There is motion throughout the study limiting exam HEAD: No acute intracranial hemorrhage. No mass effect. No extra-axial collection. There is atrophy with prominence of the ventricles and the sulci and hypodensity of the periventricular white matter due to chronic small vessel ischemic disease. There is vascular calcifications of the internal carotid arteries bilaterally. There is multifocal encephalomalacia from old infarct in the left frontal and left parietal occipital lobe unchanged since prior study. There is also focal encephalomalacia now in the right parietal-occipital lobe adjacent to the trigone of the right lateral ventricle which is more pronounced than was seen on the prior CAT scan. The low-attenuation though suggest this is also an old infarct. Air-fluid level opacifies about 50% volume of the left sphenoid sinus. The right sphenoid sinus is entirely opacified. The mastoid air cells and middle ear cavities are normally aerated. CERVICAL SPINE: There is no evidence of acute cervical spine fracture. . No pre- or paravertebral soft tissue abnormality is identified. Multilevel degenerative spondylosis of the spine. Disc height narrowing C4-C5 to the disc level of C6-C7 with endplate spurs. There is facet joint arthrosis throughout the cervical spine most pronounced at the upper cervical spine facet joints bilaterally. Lung apices clear. Heavy vascular calcification of thoracic aorta IMPRESSION: Motion limits CAT scan of the head and cervical spine. 1. No acute intracranial pathology. Sinus disease of the sphenoid sinuses bilateral 2. No CT evidence of acute cervical spine fracture or traumatic subluxation. Multilevel degenerative spondylosis of cervical spine. DICTATED BY: BISHOP DIETRICH MD DATE/TIME DICTATED:08/05/16535 SUPERVISOR CUSTOMER SERVICES:NGUYEN DATE/TIME TRANSCRIBED:08/05/16535 CONFIDENTIAL, DO NOT COPY WITHOUT APPROPRIATE AUTHORIZATION. <Electronically signed in Other Vendor System> SIGNED BY: BISHOP DIETRICH MD 08/05/16 0544 Assessment/Plan Assessment: Assessment- 1. Comminuted intertrochanteric actually of the left femur status post unwitnessed fall 2. Leukocytosis, no bands, likely reactive secondary to the fall 3. Advanced dementia 4. Atrial fibrillation on Eliquis 5. Hypertension 6. Hyperlipidemia 7. Hx of CVA 8. Hx of Diastolic dysfunction Plan- Given unwitnessed fall, telemetry admit Vitals per protocol Add-on troponin to admission labs, less than 0.01 Check thyroid studies, B12, folic acid, vitamin D, CK Unknown time of her last aspirin and Eliquis Will get a cardiology clearance Continue antihypertensives Adequate analgesia and bowel prep Nothing by mouth for now in anticipation of surgery later on today Subcutaneous heparin at present for DVT prophylaxis Pain pathway DNR/DNI, discussed with her daughter Jyotsna who is also the power of insurance attorney RCRI- 6.6%, will get Cardiac clearance As Ranked By This Provider Problem List: 1. Intertrochanteric fracture of left hip Core Measures/Miscellaneous Acute Coronary Syndrome ACS Diagnosis: No Cerebrovascular Accident CVA/TIA Diagnosis: No Congestive Heart Failure CHF Diagnosis: No Venous Thromboembolism VTE Risk Factors: Age > 40 No [facility] VTE prophylaxis d/t: No contraindications No VTE Pharm Prophylaxis d/t: No contraindications VTE Diagnosis: No VTE Type: NONE VTE Confirmed by (Test): NONE Severe Sepsis Severe Sepsis Present: No Septic Shock Septic Shock Present: No Miscellaneous Documentation Attending Case Discussed With: VEENA KOHLER MD Primary Care Physician: COBY BOLANOS MD Patient sees these Specialists DR. GUTIÉRREZ Level of Patient Care: General Medicine Resident Review Statement Resident Statement: examined this patient, discussed with gallery intern SHELLY SCHOFIELD 08/05/16 0936: Attending MD Review Statement Attending Statement Attending MD Statement: examined this patient, discuss w/resident/PA/EFFERVESCENT SALTS COMPOUNDER, agreed w/resident/PA/EFFERVESCENT SALTS COMPOUNDER, discussed with family, reviewed EMR data (avail), discussed with nursing, discussed with case mgmt, reviewed images Attending Assessment/Plan: 89 o/f poor historian with above mentioned complants, history obtained from daughter, had unwitnessed fall and being admitted to telemetry for acute hip fracture. I anticipate >2 midnight stay 2/2 acute medical problems. Patient has advacned dementia needing supportive care , needs BP control and cardio consult. Ortho consult for repair and possible OR today. obtain home medication list and try to resume home meds.
--- NOTE | 2016-08-05 08:16 | Cons- Orthopedic ---
HILDA RODÍRGUEZ 08/05/16 0800: General Information and HPI Consulting Request Date of Consult: 08/05/16 Requested By: VEENA KOHLER MD Reason for Consult: Hip fracture Source of Information: patient, old records Exam Limitations: unable to give history, dementia History of Present Illness: History is obtained from old medical records as pt is completely demented and unaware of person, place or time. She is completely unable to give a history and has no idea why she is here. She is confused and upset at the time of the exam. Apparantly she was biba this morning following an unwitnessed fall. Pt has no recollection of this. Pt medical history from a prior admission last year includes HTN, stage II melendez dysfunction, neuralgia, spinal fusion arthritis, CVA (), expressive aphasia, 2 mm pulmonary nodule, atrial fibrillation diagnosed in October of 2015 - on eliquis The patient has been noted in October 2015 to have stumbled intermittently and occasionally sliding out of bed but no hard mechanical falls at that time. Per the RN - her daughter stated that her baseline ambulation is with a walker. At this time, she presents to the ED with a comminuted intratrochanteric fracture of left femur and ortho is asked to evaluate. She has no complaints at this time and is denying any pain. Allergies/Medications Allergies: Coded Allergies: codeine (UNKNOWN 07/29/15) Home Med List: Acetaminophen (Tylenol) 325 MG TABLET 650 MG PO Q6P PRN PAIN Albuterol Sulfate (Proair Hfa) 8.5 GM HFA.AER.AD 2 PUF INH PRN ASTHMA ( Reported) Alprazolam (Xanax) 0.5 MG TABLET 1 TAB PO QHS PRN INSOMINA Apixaban (Eliquis) 2.5 MG TABLET 1 TAB PO D HEART (Reported) Aspirin (Children's Aspirin) 81 MG CTB 81 MG PO DAILY stroke Atenolol 100 MG TABLET 1 TAB PO DAILY hypertension (Reported) Atorvastatin Calcium (Lipitor) 40 MG TAB 40 MG PO 1700 Stroke Cholecalciferol (Vitamin D3) 1,000 IU TAB 1,000 IU PO DAILY vit d deficiency Diltiazem HCl (Cardizem Cd) 120 MG CAP.ER.24H 180 MG PO DAILY afib Hydrochlorothiazide 12.5 MG CAPSULE 1 CAP PO DAILY DIURETIC (Reported) Ibuprofen (Advil) 200 MG TABLET 200 MG PO EVERY 6HRS- NEEDED PAIN (Reported ) Mirtazapine 15 MG TABLET 1 TAB PO QPM SLEEP (Reported) Multivitamin (Multi-Day Vitamins) 1 EACH TABLET 1 TAB PO DAILY SUPPLEMENT ( Reported) Ramelteon (Rozerem) 8 MG TABLET 8 MG PO AT BEDTIME sleep Past History Medical History Neurological: CVA, dementia, APHASIA NEURALGIA EENT: tooth extraction bad teeth since 5 years Cardiovascular: AFIB, hypertension, hyperlipidemia, bilateral leg edema Respiratory: NONE Gastrointestinal: NONE, colitis Hepatic: NONE Renal: NONE Musculoskeletal: chronic back pain, osteoarthritis, spinal stenosis Psychiatric: NONE Endocrine: NONE Blood Disorders: NONE Cancer(s): NONE SECURITY TRAINER/Reproductive: NONE Surgical History Pertinent Surgical History: non-contributory Family History Relations & Conditions If Any: BROTHER (THROAT CANCER, AT AGE 52 SECONDARY TO SMOKING). MOTHER ( AT 68 CVA). FATHER (ALCOHOL USE, DESEASED AT 72). Psychosocial History Where Do You Live? Home Services at Home: None Functional Ability Ambulation: walker Review of Systems Review of Systems: See HPI Exam & Diagnostic Data Vital Signs and I&O Vital Signs Date Time Temp Pulse Resp B/P Pulse O2 O2 Flow FiO2 Ox Delivery Rate 08/05 0652 97.5 67 20 187/84 92 Room Air 08/05 0505 Room Air 08/05 0458 97.2 85 20 184/84 95 Room Air Intake & Output 08/05 1600 08/05 0800 08/05 0000 08/04 1600 08/04 0800 08/04 0000 Intake Total 0 Output Total 300 Balance -300 Intake, Oral 0 Output, Urine 300 Patient 120 lb Weight Physical Exam: General: demented, conversant but not oriented Chest: clear anteriorly bilaterally, RRR with frequent skipped beats, no murmurs /rubs Abd: soft, good bs Ext: vascular changes to skin BLE, Cool to touch with good cap refill BLE, FROM with good strength to bilateral ankles/knees, movement not assessed at hip due to fracture. Positive sensate BLE, no erythema or hematom at hip, nontender to palpation of hip, no calf tenderness Last 24 Hours of Labs: Laboratory Tests 08/05 08/05 0645 0631 Hematology CBC w Diff MAN DIFF ORDERED WBC (4.8 - 10.8 /CUMM) 24.9 H RBC (4.20 - 5.40 /CUMM) 4.09 L Hgb (12.0 - 16.0 G/DL) 10.4 L Hct (37 - 47 %) 32.5 L MCV (81.0 - 99.0 FL) 79.5 L MCH (27.0 - 31.0 PG) 25.4 L RDW (11.5 - 14.5 %) 17.2 H Plt Count (130 - 400 /CUMM) 363 MPV (7.4 - 10.4 FL) 8.6 Gran % (42.2 - 75.2 %) 92.4 H Lymphocytes % (20.5 - 51.1 %) 3.2 L Monocytes % (1.7 - 9.3 %) 3.1 Eosinophils % (0 - 5 %) 1.1 Basophils % (0.0 - 2.0 %) 0.2 Absolute Granulocytes (1.4 - 6.5 /CUMM) 23.0 H Segmented Neutrophils (42.2 - 75.2 %) 91 H Band Neutrophils (0.0 - 5.0 %) 1 Absolute Lymphocytes (1.2 - 3.4 /CUMM) 0.8 L Lymphocytes (20.5 - 51.1 %) 3 L Monocytes (1.7 - 9.3 %) 2 Absolute Monocytes (0.10 - 0.60 /CUMM) 0.8 H Eosinophils (0 - 5.0 %) 3 Absolute Eosinophils (0.0 - 0.7 /CUMM) 0.3 Absolute Basophils (0.0 - 0.2 /CUMM) 0 Platelet Estimate (ADEQUATE) ADEQUATE Polychromasia 1+ Hypochromic-Microcytic 1+ Poikilocytosis 2+ Ovalocytes 1+ Shari Cells FEW Elliptocytes FEW Schistocytes RARE PUBS MCHC (33.0 - 37.0 G/DL) 32.0 L Other Body Source Fld Total RBCs Counted (%) 100 Urines Urinalysis LIGHT H Urine Color (YEL,AMB,STR) YEL Urine Clarity (CLEAR) CLEAR Urine pH (5.0 - 8.0) 6.5 Ur Specific Anderson (1.001 - 1.035) 1.015 Urine Protein (NEG,<30 MG/DL) NEG Urine Ketones (NEG) NEG Urine Nitrite (NEG) NEG Urine Bilirubin (NEG) NEG Urine Urobilinogen (0.1 - 1.0 EU/dl) 0.2 Ur Leukocyte Esterase (NEG) NEG Ur Microscopic SEDIMENT EXAMINED Urine RBC (0 - 5 /HPF) 10-15 H Urine WBC (0 - 2 /HPF) RARE Urine Bacteria (NEG/NONE) FEW H Urine Hemoglobin (NEG) MOD H Urine Glucose (N MG/DL) NEG 08/05 0620 Chemistry Sodium (137 - 145 mmol/L) 137 Potassium (3.5 - 5.1 mmol/L) 4.1 Chloride (98 - 107 mmol/L) 101 Carbon Dioxide (22 - 30 mmol/L) 29 Anion Gap (5 - 16) 7 BUN (7 - 17 mg/dL) 27 H Creatinine (0.5 - 1.0 mg/dL) 0.9 Estimated GFR (>60 ml/min) 59 L BUN/Creatinine Ratio (7 - 25 %) 30.0 H Glucose (65 - 99 mg/dL) 144 H Calcium (8.4 - 10.2 mg/dL) 9.2 Total Bilirubin (0.2 - 1.3 mg/dL) 0.5 AST (14 - 36 U/L) 30 ALT (9 - 52 U/L) 32 Alkaline Phosphatase (<127 U/L) 97 Troponin I (< 0.11 ng/ml) < 0.01 Total Protein (6.3 - 8.2 g/dL) 7.2 Albumin (3.5 - 5.0 g/dL) 3.2 L Globulin (1.9 - 4.2 gm/dL) 4.0 Albumin/Globulin Ratio (1.1 - 2.2 %) 0.8 L Coagulation PT (9.4 - 12.5 SEC) 12.9 H INR (0.90 - 1.19) 1.23 H APTT (25 - 37 SEC) 29 Imaging Results: Motion limits CAT scan of the head and cervical spine. 1. No acute intracranial pathology. Sinus disease of the sphenoid sinuses bilateral 2. No CT evidence of acute cervical spine fracture or traumatic subluxation. Multilevel degenerative spondylosis of cervical spine. Left Hip XR: Comminuted intratrochanteric fracture of left femur. Femoral head remains seated in the acetabulum. There is superior subluxation of the distal fracture fragment. Focal sclerotic lesion of the left sacral ala at the inferior sacroiliac joint . This was noted present on the prior left radiograph of the hip of 10/10/2010. This measures 2.3 x 1.7 cm. IMPRESSION: Comminuted intratrochanteric fracture of left femur. Assessment/Plan Assessment/Plan 89 yo female with history of dementia, htn, cva, a fib on eliquis presents with left hip fracture, WBC 24.9 Plan is admitted to the medical service She will need medical and cardiac clearance for the OR She is on eliquis ? last time it was taken - recommendations regarding lenth of time between dosing and surgery to be discussed. Hold for now. Will discuss with Dr Pollard Copies To: FLAVIO POLLARD MD Consult Acknowledgment - Thank you for your consult request. FLAVIO POLLARD MD 08/05/16 1148: Assessment/Plan Consult Acknowledgment - Thank you for your consult request. Attending Review Statement Attending Statement Attending MD Statement: examined this patient, discuss w/resident/PA/DIE SINKER APPRENTICE, agreed w/resident/PA/DIE SINKER APPRENTICE, reviewed images Attending Assessment/Plan: Patient seen and examined. Laying supine in bed, comfortable. Reports left hip pain but no other pain. Intermittently follows commands. Exam: Tender to palpation over left hip and thigh. No ecchymosis or abrasions to left hip. Superficial abrasion/skin tears to left lower leg. Nontender left calf or foot. Intact DF/PF/EHL. Nontender to palpation of right leg/hip and bilateral upper extremities. Multiple superficial abrasions/bruises to bilateral upper extremities. Moving bilateral upper extremities with ease. A/P: 89yo F with multiple medical problems, including dementia, HTN, afib on apixiban, CVA in 2014, and diastolic dysfunction presents with left intertrochanteric hip fracture. 1. NWB LLE 2. Please obtain AP pelvis and left femur xrays 3. Appreciate medical and cardiac evaluation for optimization in preparation for surgery. 4. Hold apixiban 5. Maintain [facility] Surgical planning pending cardiac evaluation/clearance and time off apixiban.
--- NOTE | 2016-08-05 09:36 | Event Note ---
Event Note Event Note: Cardiolog consult placed with Dr. Davis office for pre-op Cardiology clearence. The surgery is postponed to tomorrow!
[2016-08-05 10:30] VITALS: BP 158/82
--- NOTE | 2016-08-05 13:14 | RADIOLOGY REPORT ---
EXAMINATION: XRY-AP PELVIS, XRY-FEMUR, LEFT 2 VIEWS CLINICAL INFORMATION: Reason for Study:
Presumptive Dx: left hip intertrochanteric fracture
Signs Symptoms: pain, deformity
COMPARISON: Left hip radiograph 10/10/2010 TECHNIQUE: Single AP view pelvis AP and lateral views of the femur FINDINGS: There is a complete, impacted intertrochanteric fracture of the left hip. No additional fracture. There is widening of the pubic symphysis, although this likely chronic. There is soft tissue swelling/hematoma about the fracture. IMPRESSION: Impacted intertrochanteric fracture of the left hip.
[2016-08-05 16:07] VITALS: BP 152/82
--- NOTE | 2016-08-05 16:49 | Cons- Cardiology ---
General Information and HPI Consulting Request Date of Consult: 08/05/16 Requested By: ROXANNA OZUNA MD Reason for Consult: Preoperative cardiovascular clearance. Source of Information: patient, old records Exam Limitations: unable to give history, dementia History of Present Illness: Mrs. Karissa Aceves is an 89-year-old female with a history of long- standing hypertension, anemia, neuralgia, dementia, s/p stroke in the left MCA distribution with paroxysmal atrial fibrillation discovered during her most recent hospitalization (vide infra), who presented via ambulance following an unwitnessed fall from her bed to the floor at her home, during which she sustained a left hip fracture and who we are asked to evaluate to help assess her suitability for orthopedic surgery. Unfortunately, the patient can give no reliable history as a result of her dementia and no family members are present. She does admit to pain in the left lower extremity region. She was most recently admitted to [facility] (10/30-11/03/2015) with altered mental status, ultimately felt to be secondary to a stroke with the discovery of paroxysmal atrial fibrillation which prompted the initiation of anticoagulation with Eliquis (apixaban, a factor X a inhibitor) based on her high [id number] Score. Allergies/Medications Allergies: Coded Allergies: codeine (UNKNOWN 07/29/15) Home Med List: Acetaminophen (Tylenol) 325 MG TABLET 650 MG PO Q6P PRN PAIN Albuterol Sulfate (Proair Hfa) 8.5 GM HFA.AER.AD 2 PUF INH PRN ASTHMA ( Reported) Alprazolam (Xanax) 0.5 MG TABLET 1 TAB PO QHS PRN INSOMINA Apixaban (Eliquis) 2.5 MG TABLET 1 TAB PO BID HEART (Reported) Aspirin (Children's Aspirin) 81 MG CTB 81 MG PO DAILY stroke Atenolol 100 MG TABLET 1 TAB PO DAILY hypertension (Reported) Atorvastatin Calcium (Lipitor) 40 MG TAB 40 MG PO 1700 Stroke Cholecalciferol (Vitamin D3) 1,000 IU TAB 1,000 IU PO DAILY vit d deficiency Diltiazem HCl (Cardizem Cd) 120 MG CAP.ER.24H 180 MG PO DAILY afib Hydrochlorothiazide 12.5 MG CAPSULE 1 CAP PO DAILY DIURETIC (Reported) Ibuprofen (Advil) 200 MG TABLET 200 MG PO EVERY 6HRS- NEEDED PAIN (Reported ) Mirtazapine 15 MG TABLET 1 TAB PO QPM SLEEP (Reported) Multivitamin (Multi-Day Vitamins) 1 EACH TABLET 1 TAB PO DAILY SUPPLEMENT ( Reported) Ramelteon (Rozerem) 8 MG TABLET 8 MG PO AT BEDTIME sleep Review of Systems Review of Systems: Unobtainable, as patient has advanced dementia. 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 MOTHER ( AT 68 CVA). FATHER (ALCOHOL USE, DESEASED AT 72). Psychosocial History Where Do You Live? Home Services at Home: None Functional Ability Ambulation: walker ECHO Results (as available) EF% 60 Exam & Diagnostic Data Vital Signs and I&O Vital Signs Date Time Temp Pulse Resp B/P Pulse O2 O2 Flow FiO2 Ox Delivery Rate 08/05 1607 99.5 75 18 152/82 96 Nasal 2.0L Cannula 08/05 1016 97.3 77 18 159/73 99 Nasal 2.0L Cannula 08/05 0914 18 94 Nasal 2.0L Cannula 08/05 0852 96.9 71 16 166/77 92 Room Air 08/05 0652 97.5 67 20 187/84 92 Room Air 08/05 0505 Room Air 08/05 0458 97.2 85 20 184/84 95 Room Air Intake & Output 08/05 1600 08/05 0800 08/05 0000 08/04 1600 08/04 0800 08/04 0000 Intake Total 0 Output Total 125 300 Balance -125 -300 Intake, Oral 0 Output, Urine 125 300 Patient 120 lb Weight Physical Exam: Well-developed, well nourished elderly female with nasal oxygen in place in no acute distress. Vital signs: See above. HEENT: Normocephalic, atraumatic, EOMI, slightly dry mucous membranes. Neck: No JVD, no bruits. Lungs: Clear to auscultation bilaterally. Heart: S1, S2 with soft (grade 1/6) systolic murmur best heard near the base. No gallop or rub appreciated. Abdomen: Soft, positive bowel sounds. Extremities: No edema. Labs/Fidel Results: Laboratory Tests 08/05 08/05 0645 0631 Hematology CBC w Diff MAN DIFF ORDERED WBC (4.8 - 10.8 /CUMM) 24.9 H RBC (4.20 - 5.40 /CUMM) 4.09 L Hgb (12.0 - 16.0 G/DL) 10.4 L Hct (37 - 47 %) 32.5 L MCV (81.0 - 99.0 FL) 79.5 L MCH (27.0 - 31.0 PG) 25.4 L RDW (11.5 - 14.5 %) 17.2 H Plt Count (130 - 400 /CUMM) 363 MPV (7.4 - 10.4 FL) 8.6 Gran % (42.2 - 75.2 %) 92.4 H Lymphocytes % (20.5 - 51.1 %) 3.2 L Monocytes % (1.7 - 9.3 %) 3.1 Eosinophils % (0 - 5 %) 1.1 Basophils % (0.0 - 2.0 %) 0.2 Absolute Granulocytes (1.4 - 6.5 /CUMM) 23.0 H Segmented Neutrophils (42.2 - 75.2 %) 91 H Band Neutrophils (0.0 - 5.0 %) 1 Absolute Lymphocytes (1.2 - 3.4 /CUMM) 0.8 L Lymphocytes (20.5 - 51.1 %) 3 L Monocytes (1.7 - 9.3 %) 2 Absolute Monocytes (0.10 - 0.60 /CUMM) 0.8 H Eosinophils (0 - 5.0 %) 3 Absolute Eosinophils (0.0 - 0.7 /CUMM) 0.3 Absolute Basophils (0.0 - 0.2 /CUMM) 0 Platelet Estimate (ADEQUATE) ADEQUATE Polychromasia 1+ Hypochromic-Microcytic 1+ Poikilocytosis 2+ Ovalocytes 1+ Caroleen Cells FEW Elliptocytes FEW Schistocytes RARE PUBS MCHC (33.0 - 37.0 G/DL) 32.0 L Other Body Source Fld Total RBCs Counted (%) 100 Urines Urinalysis LIGHT H Urine Color (YEL,AMB,STR) YEL Urine Clarity (CLEAR) CLEAR Urine pH (5.0 - 8.0) 6.5 Ur Specific [place] (1.001 - 1.035) 1.015 Urine Protein (NEG,<30 MG/DL) NEG Urine Ketones (NEG) NEG Urine Nitrite (NEG) NEG Urine Bilirubin (NEG) NEG Urine Urobilinogen (0.1 - 1.0 EU/dl) 0.2 Ur Leukocyte Esterase (NEG) NEG Ur Microscopic SEDIMENT EXAMINED Urine RBC (0 - 5 /HPF) 10-15 H Urine WBC (0 - 2 /HPF) RARE Urine Bacteria (NEG/NONE) FEW H Urine Hemoglobin (NEG) MOD H Urine Glucose (N MG/DL) NEG 08/05 0620 Chemistry Sodium (137 - 145 mmol/L) 137 Potassium (3.5 - 5.1 mmol/L) 4.1 Chloride (98 - 107 mmol/L) 101 Carbon Dioxide (22 - 30 mmol/L) 29 Anion Gap (5 - 16) 7 BUN (7 - 17 mg/dL) 27 H Creatinine (0.5 - 1.0 mg/dL) 0.9 Estimated GFR (>60 ml/min) 59 L BUN/Creatinine Ratio (7 - 25 %) 30.0 H Glucose (65 - 99 mg/dL) 144 H Calcium (8.4 - 10.2 mg/dL) 9.2 Total Bilirubin (0.2 - 1.3 mg/dL) 0.5 AST (14 - 36 U/L) 30 ALT (9 - 52 U/L) 32 Alkaline Phosphatase (<127 U/L) 97 Creatine Kinase (30 - 135 U/L) 58 Troponin I (< 0.11 ng/ml) < 0.01 Total Protein (6.3 - 8.2 g/dL) 7.2 Albumin (3.5 - 5.0 g/dL) 3.2 L Globulin (1.9 - 4.2 gm/dL) 4.0 Albumin/Globulin Ratio (1.1 - 2.2 %) 0.8 L Vitamin B12 (239 - 931 pg/mL) 620 25-OH Vitamin D Total (30 - 100 ng/ml) 38.0 Folate (2.76 - 20.0 ng/mL) 13.2 TSH (0.270 - 4.200 uIU/mL) 5.550 H Free T4 (0.85 - 1.93 ng/dL) 1.21 Coagulation PT (9.4 - 12.5 SEC) 12.9 H INR (0.90 - 1.19) 1.23 H APTT (25 - 37 SEC) 29 Diagnostic Data EKG Results 08/05/2016) sinus rhythm, early precordial transition, and ST-T wave abnormalities in diffuse leads consistent with possible ischemia minor changes when compared to previous tracing. CXR Results (08/05/2016) no acute cardiopulmonary process. Other Results Left hip x-ray (08/05/2016) : Comminuted intratrochanteric fracture of left femur. Echocardiogram (11/03/2015): Normal size left ventricle. Normal left ventricular wall thickness. No obvious regional wall motion abnormalities. Normal left ventricular ejection fraction visually estimated at 60%. Mild right ventricular dilatation. Moderate to severe atrial dilatation. [id number]-ucjubkcl mitral regurgitation. Mild aortic regurgitation. Wmzm-yd-uoilxwel tricuspid regurgitation. Right ventricular systolic pressure estimated to be elevated at 38 mmHg. Mild pulmonic regurgitation. Mildly dilated inferior vena cava. Assessment/Plan Assessment/Plan Mrs. Aceves as an elderly female with a history of hypertension, a October 2015 admission for altered mental status, ultimately felt to be secondary to a stroke syndrome during which paroxysmal atrial fibrillation was also discovered and prompted anticoagulation therapy, and advanced dementia who presented following an unwitnessed fall during which she sustained a fracture of her left femur and for which orthopedic surgery has been recommended. Fortunately, she reportedly has no history of coronary, valvular, conduction disease or cardiomyopathy. She does, however, have an abnormal electrocardiogram with findings consistent with possible ischemia, although repolarization changes from left ventricular hypertrophy are also a possibility, secondary to her long-standing history of hypertension. As she clearly needs the surgery, would predict that the risk of surgery is outweighed by the potential benefit, and as such, she is cleared from a cardiac standpoint. Recommendations: * Continue on telemetry, follow-up troponins, follow-up electrocardiograms. * Repeat echocardiogram to assess for systolic/diastolic function, presence of left ventricular hypertrophy, atrial size, pulmonary pressure, etc. * Discontinue anticoagulation for the short-term. Note that according to the medication list, she is taking Eliquis 2.5 mg daily which is an incorrect dosage. She should be taking Eliquis 2.5 mg 2x daily. * Continue on her chronic beta viridiana therapy, calcium channel antagonist, and statin. * DVT prophylaxis. Further recommendations will follow, Thank you. Consult Acknowledgment - Thank you for your consult request.
[2016-08-05 23:28] VITALS: BP 150/80
--- NOTE | 2016-08-06 07:25 | PN- Housestaff ---
DANG KNIGHT 08/06/16 0724: Subjective Follow-up For: Left hip fracture Subjective: Patient seen and examined. She seems to be doing well. Patient is on the oriented to self she is unable to carry out meaningful conversations due to her underlying dementia. Patient has been kept nothing by mouth today for possible surgery later today for left hip fracture repair. Review of Systems Constitutional: Reports: see HPI. Objective Last 24 Hrs of Vital Signs/I&O Vital Signs Date Time Temp Pulse Resp B/P Pulse O2 O2 Flow FiO2 Ox Delivery Rate 08/06 0810 98.4 65 20 120/62 91 Nasal 2.0L Cannula 08/06 0000 Nasal 2.0L Cannula 08/05 2328 98.9 78 18 150/80 96 Nasal Cannula 08/05 1913 Nasal 2.0L Cannula 08/05 1607 99.5 75 18 152/82 96 Nasal 2.0L Cannula 08/05 1600 Nasal 2.0L Cannula Intake & Output 08/06 1600 08/06 0800 08/06 0000 Intake Total 400 760 Output Total 125 300 Balance 275 460 Intake, IV 400 400 Intake, Oral 360 Output, Urine 125 300 Physical Exam General Appearance: Alert, Cooperative, awake Assessment/Plan Assessment: Patient is 89-year-old female with past medical history of hypertension, atrial fibrillation on and liquids, advanced dementia. Most of the history was obtained from her daughter Jyotsna who is also the power of early childhood worker. The daughter stated that over the course of last couple months despite having bedrails they have noticed that Mrs. Romero does try and climb out of bed and attempt unsafe ambulation. The patient was found downstairs on the kitchen floor after they heard someone falling. Upon arriving to the kitchen, they noticed that her mom was lying on the floor next to the kitchen sink. Her only complaint of the time was left hip pain. She was unsure as to how she got there. Denied any head strike or loss of consciousness however the validity of this statement should be taken with a grain of salt considering the fact that she does have advanced dementia. Labs and vitals as above Imaging done during hospital stay Cervical and head CT 1. No acute intracranial pathology. Sinus disease of the sphenoid sinuses bilateral 2. No CT evidence of acute cervical spine fracture or traumatic subluxation. Multilevel degenerative spondylosis of cervical spine. Left hip/femur/pelvis x-ray Comminuted intratrochanteric fracture of left femur. Assessment and plan Given the patient's history of atrial fibrillation, patient was admitted to telemetry floor Patient has advanced dementia and unable to communicate in a meaningful way, unable to obtain the history regarding her last eliquis dose. Patient was evaluated by Dr. Nguyen for cardiology clearance Will follow for echocardiogram Plan is for surgery in the morning, patient will be kept nothing by mouth after midnight Eliquis can be restarted on post operative day one after confirming with the orthopedic surgeon Continued on Cardizem 180 mg daily for her A. fib, atenolol for her blood pressure, Statin for hyperlipidemia Pain management with by mouth Tylenol mild pain, IV Tylenol moderate pain, DVT prophylaxis supporting his heparin Patient is DNR/DNI Problem List: 1. Intertrochanteric fracture of left hip Pain Ratin Pain Location: patient unable to communicate about pain Pain Goal: Pain 4 or less Pain Plan: tylenol prn and RTC for pain Tomorrow's Labs & Rationales: cbc bep SHELLY SCHOFIELD 08/06/16 1341: Attending MD Review Statement Attending Statement Attending MD Statement: examined this patient, discuss w/resident/PA/DIE MECHANIC, agreed w/resident/PA/DIE MECHANIC, discussed with family, reviewed EMR data (avail), discussed with nursing, discussed with case mgmt, reviewed images Attending Assessment/Plan: 89 o/f poor historian with above mentioned complants, history obtained from daughter, had unwitnessed fall and being admitted to telemetry for acute hip fracture. I anticipate >2 midnight stay 2/2 acute medical problems. Patient has advacned dementia needing supportive care , needs BP control and cardio consult. Patient is medically stable for orthopedics procedure. Ortho consult for repair and possible OR tommorrow, obtain home medication list and try to resume home meds. patient is scheduled for OR tomorrow NPO past MN.
[2016-08-06 08:01] LABS: ABSOLUTE BASOPHIL COUNT 0 /CUMM (0.0-0.2); ABSOLUTE EOSINOPHIL COUNT 0.8 /CUMM (0.0-0.7); ABSOLUTE GRANULOCYTE CT 8.9 /CUMM (1.4-6.5); ABSOLUTE MONOCYTE COUNT 0.7 /CUMM (0.10-0.60); BASOPHIL % 0.4 % (0.0-2.0); EOSINOPHIL % 6.9 % (0-5); MEAN CORPUSCULAR HGB 25.3 PG (27.0-31.0); MEAN CORPUSCULAR HGB CONC 31.7 G/DL (33.0-37.0); MEAN CORPUSCULAR VOLUME 79.8 FL (81.0-99.0); MEAN PLATELET VOLUME 9.8 FL (7.4-10.4); PLATELET COUNT 273 /CUMM (130-400); RBC DISTRIBUTION WIDTH 18.4 % (11.5-14.5); RED BLOOD CELL CT 4.01 /CUMM (4.20-5.40)
[2016-08-06 08:10] VITALS: BP 120/62
[2016-08-06 08:33] LABS: WHITE BLOOD CELL COUNT 11.4 /CUMM (4.8-10.8)
--- NOTE | 2016-08-06 12:29 | PN- Orthopedic ---
Subjective Subjective: Patient seen and examined this morning. Awake, talkative, but demented. Denies pain in left hip. Objective Vital Signs and I&Os Vital Signs Date Time Temp Pulse Resp B/P Pulse O2 O2 Flow FiO2 Ox Delivery Rate 08/06 0946 94 Nasal 2.0L Cannula 08/06 0810 98.4 65 20 120/62 91 Nasal 2.0L Cannula 08/06 0000 Nasal 2.0L Cannula 08/05 2328 98.9 78 18 150/80 96 Nasal Cannula 08/05 1913 Nasal 2.0L Cannula 08/05 1607 99.5 75 18 152/82 96 Nasal 2.0L Cannula 08/05 1600 Nasal 2.0L Cannula Intake & Output 08/06 1600 08/06 0800 08/06 0000 08/05 1600 08/05 0800 08/05 0000 Intake Total 400 760 0 Output Total 125 300 425 300 Balance 275 460 -425 -300 Intake, IV 400 400 Intake, Oral 360 0 Output, Urine 125 300 425 300 Patient 120 lb Weight Physical Exam: Alert, awake, demented. Left hip: tender to palpation over lateral hip and anterior thigh. Nontender over knee and calf. Moving bilateral feet without difficulty. Moving bilateral upper extremities without difficulty. Leon catheter in place. Assessment/Plan Assessment/Plan 89yo F with left intertrochanteric hip fracture. Plan for OR Tuesday for cephalomedullary nail stabilization. Optimized for surgery per medical and cardiology services. 1. NWB LLE 2. Pain control 3. Will obtain consent from daughter/POA 4. Patient may eat today, NPO after midnight 5. Maintain leon catheter 6. Please hold Eliquis in anticipation of surgery, tentative plan to restart on POD#1.
[2016-08-06 16:36] VITALS: BP 140/70
--- NOTE | 2016-08-06 17:50 | ECHOCARDIOGRAM REPORT ---
GALLITO WRIGHT Age: 89 : 1925 Gender: F Exam Date: 08/06/2016 10:14 Exam Location: 1 [address] Ht (in): 61 Wt (lb): 120 BSA: 1.54 BP: 150 / 80 Ordering Physician: JOSEFINA SILVA MD Referring Physician: JOSEFINA SILVA MD Technologist: Denny Tucker [facility] Room Number: [id number] Indications: AFIB/FLUTTER Rhythm: Sinus Technical Quality: Fair FINDINGS Left Ventricle Normal size left ventricle. Mild concentric left ventricular hypertrophy. No obvious regional wall motion abnormalities. Normal left ventricular ejection fraction visually estimated at >60%. Normal left ventricular diastolic filling pattern for age. Tissue Doppler not performed. Right Ventricle Normal right ventricular size and function. Right Atrium Mild to moderate right atrial dilatation. Left Atrium Moderate to severe left atrial dilatation. Mitral Valve Mild mitral annular calcification. Mitral valve mildly thickened. Mild mitral regurgitation. Aortic Valve Trileaflet aortic valve. Mild aortic sclerosis. No aortic stenosis. Trace to mild aortic regurgitation. Tricuspid Valve Structurally normal tricuspid valve. Mild tricuspid regurgitation. Mild pulmonary hypertension. Right ventricular systolic pressure estimated to be elevated at 40 mmHg. Pulmonic Valve Pulmonic valve not well visualized, grossly normal. Trace pulmonic regurgitation. Pericardium No pericardial effusion. Great Vessels Normal size aortic root. CONCLUSIONS Normal size left ventricle. Mild concentric left ventricular hypertrophy. Normal left ventricular ejection fraction visually estimated at > 60%. Normal left ventricular diastolic filling pattern for age. Normal right ventricular size and function. Mild to moderate right atrial dilatation. Moderate to severe left atrial dilatation. Mild mitral regurgitation. Trace to mild aortic regurgitation. Mild tricuspid regurgitation. Mild pulmonary hypertension. Trace pulmonic regurgitation. Anthony Nguyen M.D. (Electronically Signed) Final Date: 06 August 2016 17:49 MEASUREMENTS (Male / Female) Normal Values 2D ECHO LV Diastolic Diameter PLAX 4.1 cm 4.2 - 5.9 / 3.9 - 5.3 cm LV Systolic Diameter PLAX 2.7 cm 2.1 - 4.0 cm LV Fractional Shortening PLAX 34.4 % 25 - 46 % LV Ejection Fraction 2D Teich 64.0 % IVS Diastolic Thickness 1.1 cm LVPW Diastolic Thickness 1.0 cm LV Relative Wall Thickness 0.5 RV Internal Dim ED PLAX 2.8 cm 1.9 - 3.8 cm LVOT Diameter 2.1 cm Aortic Root Diameter 2.7 cm LA Systolic Diameter LX 3.8 cm 3.0 - 4.0 / 2.7 - 3.8 cm Ascending Aorta Diameter 2.5 cm DOPPLER AV Peak Velocity 103.0 cm/s AV Peak Gradient 4.2 mmHg AV Mean Velocity 70.6 cm/s AV Mean Gradient 2.0 mmHg AV Velocity Time Integral 20.9 cm AI Deceleration Douglas 232.0 cm/s AI Peak Velocity 393.5 cm/s AI Pressure Half Time 497.5 ms AI Peak Gradient 61.9 mmHg LVOT Peak Velocity 71.4 cm/s LVOT Peak Gradient 2.0 mmHg LVOT Mean Velocity 43.8 cm/s LVOT Mean Gradient 1.0 mmHg LVOT Velocity Time Integral 14.8 cm LVOT Stroke Volume 51.3 cm AV Area Cont Eq vti 2.5 cm AV Area Cont Eq pk 2.4 cm MV Peak Velocity 86.8 cm/s MV Peak Gradient 3.0 mmHg MV Mean Velocity 44.3 cm/s MV Mean Gradient 1.0 mmHg Mitral E Point Velocity 64.7 cm/s Mitral A Point Velocity 24.7 cm/s Mitral E to A Ratio 2.6 MV PHT Velocity 86.3 cm/s MV Deceleration Douglas 269.0 cm/s MV Pressure Half Time 96.2 ms MV Area PHT 2.3 cm MV Deceleration Time 320.0 ms MR Peak Velocity 519.0 cm/s MR Peak Gradient 107.7 mmHg TR Peak Velocity 294.0 cm/s TR Peak Gradient 34.6 mmHg Right Atrial Pressure 5.0 mmHg Pulmonary Artery Systolic Pressu 39.6 mmHg Right Ventricular Systolic Press 39.6 mmHg PV Peak Velocity 73.1 cm/s PV Peak Gradient 2.1 mmHg PV Mean Velocity 51.8 cm/s PV Mean Gradient 1.0 mmHg PV Velocity Time Integral 16.0 cm
--- NOTE | 2016-08-06 18:34 | PN- Orthopedic ---
Surgical Brief Attending Note Brief Attending Note: Called patient's daughter Jyotsna to discuss surgical intervention for left hip; plan for left hip CM nail tomorrow morning (Tuesday08/07/16). Reviewed risks and benefits of surgical intervention; plan to restart home medications including Eliquis after surgery. Jyotsna has requested that she is not present pre-operatively; will call her tomorrow morning with anesthesiology team for formal consents per her request.
[2016-08-07 00:40] VITALS: BP 120/58
[2016-08-07 08:08] VITALS: BP 120/58
[2016-08-07 08:27] LABS: ABSOLUTE BASOPHIL COUNT 0.1 /CUMM (0.0-0.2); ABSOLUTE LYMPH COUNT 1.1 /CUMM (1.2-3.4); BASOPHIL % 0.6 % (0.0-2.0); GRANULOCYTE % 68.3 % (42.2-75.2); HEMATOCRIT 30.7 % (37-47); MEAN CORPUSCULAR HGB 25.6 PG (27.0-31.0); MEAN CORPUSCULAR HGB CONC 32.3 G/DL (33.0-37.0); MEAN CORPUSCULAR VOLUME 79.1 FL (81.0-99.0); PLATELET COUNT 276 /CUMM (130-400); RBC DISTRIBUTION WIDTH 18.1 % (11.5-14.5); RED BLOOD CELL CT 3.88 /CUMM (4.20-5.40); WHITE BLOOD CELL COUNT 13.2 /CUMM (4.8-10.8)
--- NOTE | 2016-08-07 09:04 | PN- Housestaff ---
LUI PEPE,MAGDIEL 08/07/16 0904: Subjective Follow-up For: status post ORIF left hip for intertrochanteric fracture. Complaints: no complaints Tele-Events Since Last Visit: Sinus bradycardia with heart rate between 58-68, PVCs Subjective: Patient is seen and examined at the bedside. She was oriented to time, place and person. She was complaining for any pain. Review of Systems Constitutional: Denies: no symptoms. Comments: Patient denies for any active complaints Objective Last 24 Hrs of Vital Signs/I&O Vital Signs Date Time Temp Pulse Resp B/P Pulse O2 O2 Flow FiO2 Ox Delivery Rate 08/07 1614 92/50 08/07 0808 96.7 59 16 120/58 96 Room Air 08/07 0638 98.0 08/07 0040 97.8 63 20 120/58 92 Nasal 2.0L Cannula 08/06 1751 96 Nasal 2.0L Cannula Intake & Output 08/07 1600 08/07 0800 08/07 0000 Intake Total 100 Output Total 200 250 Balance -200 -150 Intake, Oral 100 Output, Urine 200 250 Patient 54.431 kg Weight Physical Exam General Appearance: Alert, Oriented X3, Cooperative Cardiovascular: Normal S1, Normal S2 Lungs: Clear to Auscultation, Normal Air Movement Abdomen: Normal Bowel Sounds, Soft Neurological: Normal Speech Extremities: No Clubbing, No Cyanosis, No Edema Vascular: Normal Pulses, Pulses Symmetrical Current Medications: Current Medications Sig/Abhijeet Start time Last Medication Dose Route Stop Time Status Admin Acetaminophen 650 MG Q8P PRN 08/06 1430 AC PO Acetaminophen 1,000 MG Q8 08/06 1400 AC 08/07 N/A 1 UNIT IV 1523 Alprazolam 0.5 MG AT BEDTIME 08/06 2200 AC 08/06 PO 08/139 2124 Apixaban 2.5 MG BID 08/08 1000 AC PO Atenolol 100 MG DAILY 08/05 1000 AC 08/06 PO 1252 Atorvastatin Calcium 40 MG 1700 08/05 1700 AC 08/07 PO 1659 Cefazolin Sodium 2 GM IQ8 08/07 1600 AC 08/07 N/A 1 UNIT IV 08/08 0029 1659 Diltiazem HCl 180 MG DAILY 08/05 1000 AC 08/06 PO 1252 Heparin Sodium 5,000 UNIT Q8 08/05 1400 AC 08/06 (Porcine) SC 08/07 2300 2126 Mirtazapine 15 MG QPM 08/05 2199 AC 08/06 PO 2125 Multivitamins 1 TAB DAILY 08/06 1000 AC 08/06 Therapeutic PO 1252 Patient Medication 1 UNIT ONE NR 08/07 1615 DC Teaching ED 08/07 1630 Ramelteon 8 MG AT BEDTIME 08/06 2199 AC 08/06 PO 2124 Last 24 Hrs of Lab/Fidel Results Last 24 Hrs of Labs/Mics: Laboratory Tests 08/07/16 1240: CBC w Diff NO MAN DIFF REQ, RBC 3.21 L, MCV 79.2 L, MCH 25.1 L, RDW 17.5 H, MPV 10.1, Gran % 80.7 H, Lymphocytes % 5.6 L, Monocytes % 6.4, Eosinophils % 6.7 H, Basophils % 0.6, Absolute Granulocytes 14.7 H, Absolute Lymphocytes 1.0 L, Absolute Monocytes 1.2 H, Absolute Eosinophils 1.2, Absolute Basophils 0.1, PUBS MCHC 31.7 L 08/07/16 0633: Anion Gap 10, Estimated GFR 52 L, BUN/Creatinine Ratio 27.0 H, Glucose 98, Calcium 8.9, Total Bilirubin 0.7, AST 26, ALT 27, Alkaline Phosphatase 92, Total Protein 6.7, Albumin 2.9 L, Globulin 3.8, Albumin/Globulin Ratio 0.8 L, CBC w Diff NO MAN DIFF REQ, RBC 3.88 L, MCV 79.1 L, MCH 25.6 L, RDW 18.1 H, MPV 10.0, Gran % 68.3, Lymphocytes % 8.2 L, Monocytes % 7.6, Eosinophils % 15.3 H, Basophils % 0.6, Absolute Granulocytes 9.0 H, Absolute Lymphocytes 1.1 L, Absolute Monocytes 1.0 H, Absolute Eosinophils 2.0, Absolute Basophils 0.1, PUBS MCHC 32.3 L Assessment/Plan Assessment: Patient is 89-year-old female with past medical history of hypertension, atrial fibrillation on and liquids, advanced dementia. Most of the history was obtained from her daughter Jyotsna who is also the power of criminal defense attorney. The daughter stated that over the course of last couple months despite having bedrails they have noticed that Mrs. Romero does try and climb out of bed and attempt unsafe ambulation. The patient was found downstairs on the kitchen floor after they heard someone falling. Upon arriving to the kitchen, they noticed that her mom was lying on the floor next to the kitchen sink. Her only complaint of the time was left hip pain. She was unsure as to how she got there. Denied any head strike or loss of consciousness however the validity of this statement should be taken with a grain of salt considering the fact that she does have advanced dementia. Labs and vitals as above Imaging done during hospital stay Cervical and head CT 1. No acute intracranial pathology. Sinus disease of the sphenoid sinuses bilateral 2. No CT evidence of acute cervical spine fracture or traumatic subluxation. Multilevel degenerative spondylosis of cervical spine. Left hip/femur/pelvis x-ray Comminuted intratrochanteric fracture of left femur. Plan - Post operative Period - * Patient is comfortable and denies of any pain * We will give Tylenol as needed and avoid opioid * We will restart Eliquis 2.5 milligrams twice a day from tomorrow * ALP S for DVT prophylaxis * PT/OOB from tomorrow * We will give her injection cefazolin as advised by surgery for prophylaxis Atrial fibrillation on Eliquis - * We will continue telemetry monitoring * We will restart patient on tablet Eliquis 2.5 mgs twice a day * We will continue tablet Cardizem CD 180mg PO OD * We will follow cardiology recommendation Hypertension - We will continue tablet, atenolol 100 milligrams PO OD Hyperlipidemia - We will continue tablet atorvastatin 40 milligrams once a day Diet -heart healthy diet DVT prophylaxis -Eliquis CODE STATUS-DNR/DNI Problem List: 1. Intertrochanteric fracture of left hip 2. Dementia 3. Atrial fibrillation Pain Ratin Pain Location: Left hip Pain Goal: Remain pain free Pain Plan: [id number], avoid opiate Tomorrow's Labs & Rationales: CBC, BEP -follow-up postop DVT/Prophylaxis: mechanical, pharmacological SHELLY SCHOFIELD 08/07/16 1041: Attending Review Statement Attending Statement Attending MD Statement: examined this patient, discuss w/resident/PA/SAP TECHNICAL DEVELOPER, agreed w/resident/PA/SAP TECHNICAL DEVELOPER, discussed with family, reviewed EMR data (avail), discussed with nursing, discussed with case mgmt, reviewed images Attending Assessment/Plan: 89 o/f poor historian with above mentioned complants, history obtained from daughter, had unwitnessed fall and being admitted to telemetry for acute hip fracture. I anticipate >2 midnight stay 2/2 acute medical problems. Patient has advanced dementia needing supportive care , BP controlled and cardio consulted for pre-op clearance. Patient is medically stable for orthopedics procedure. Ortho consulted for repair and possible OR today, obtain home medication list and try to resume home meds. patient is scheduled for OR today, resume a/c as per ortho and cardiology. consent for surgery as per ortho.
[2016-08-07 09:23] LABS: EOSINOPHIL % 15.3 % (0-5)
--- NOTE | 2016-08-07 09:48 | PN- Orthopedic ---
Subjective Subjective: Patient seen and evaluated this morning. She is resting comfortably in bed, no distress, no reports of pain. Confused but pleasant. Objective Vital Signs and I&Os Vital Signs Date Time Temp Pulse Resp B/P Pulse O2 O2 Flow FiO2 Ox Delivery Rate 08/07 0808 96.7 59 16 120/58 96 Room Air 08/07 0638 98.0 08/07 0040 97.8 63 20 120/58 92 Nasal 2.0L Cannula 08/06 1751 96 Nasal 2.0L Cannula 08/06 1636 97.9 71 20 140/70 92 Nasal 2.0L Cannula 08/06 1347 Nasal 2.0L Cannula 08/06 0946 94 Nasal 2.0L Cannula Intake & Output 08/07 1600 08/07 0800 08/07 0000 08/06 1600 08/06 0800 08/06 0000 Intake Total 100 750 400 760 Output Total 200 250 250 125 300 Balance -200 -150 500 275 460 Intake, IV 350 400 400 Intake, Oral 100 400 360 Output, Urine 200 250 250 125 300 Physical Exam: Elderly female resting supine, opens eyes and responds to voice; confused but pleasant. Tender to palpation over left lateral hip and anterior thigh No open wounds noted Non-tender over left knee and calf Intermittently moving feet. Bilateral feet warm to touch. Assessment/Plan Assessment/Plan 89yo F with left intertrochanteric hip fracture; plan for OR today for cephalomedullary nail stabilization. Appreciate cardiac and medical evaluations prior to surgery. 1. NPO for surgery 2. Hold anticoagulation; SCDs while in bed 3. NWB LLE, bed rest 4. Pain control 5. OR today for left hip stabilization. Discussed with patient's daughter Jyotsna Perkins and consent obtained for surgery.
[2016-08-07 13:11] LABS: ABSOLUTE BASOPHIL COUNT 0.1 /CUMM (0.0-0.2); ABSOLUTE EOSINOPHIL COUNT 1.2 /CUMM (0.0-0.7); ABSOLUTE GRANULOCYTE CT 14.7 /CUMM (1.4-6.5); ABSOLUTE MONOCYTE COUNT 1.2 /CUMM (0.10-0.60); BASOPHIL % 0.6 % (0.0-2.0); EOSINOPHIL % 6.7 % (0-5); GRANULOCYTE % 80.7 % (42.2-75.2); MEAN CORPUSCULAR HGB 25.1 PG (27.0-31.0); MEAN CORPUSCULAR HGB CONC 31.7 G/DL (33.0-37.0); MEAN CORPUSCULAR VOLUME 79.2 FL (81.0-99.0); MEAN PLATELET VOLUME 10.1 FL (7.4-10.4); PLATELET COUNT 228 /CUMM (130-400); RBC DISTRIBUTION WIDTH 17.5 % (11.5-14.5); RED BLOOD CELL CT 3.21 /CUMM (4.20-5.40); WHITE BLOOD CELL COUNT 18.2 /CUMM (4.8-10.8)
[2016-08-07 13:35] LABS: HEMATOCRIT 25.4 % (37-47)
--- NOTE | 2016-08-07 13:35 | Operative Report ---
Operative/Inv Procedure Report Surgery Date: 08/07/16 Name of Procedure: Left hip cephalomedullary nail stabilization Pre-Operative Diagnosis: left comminuted intertrochanteric hip fracture Post-Operative Diagnosis: Left comminuted intertrochanteric hip fracture Estimated Blood Loss: 150mL Surgeon/Materials Development Engineer: MD Boni; Brittany Green MD PhD; Rick Anesthesia: laryngeal mask airway Implants: Cole Gamma3 nail [id number] nail [id number] lag screw 5mmx37.5mm distal interlock Drains: None Specimens: None Complications: None Condition: Stable Operative/Procedure Note Note: Indication for Procedure: Karissa Aceves is an 89-year-old female who presented to the [place] [facility] after an unwitnessed fall. She was found to have a left intertrochanteric hip fracture. She was evaluated by the medical and cardiology services. Once she was optimized for the operating room, she was taken for cephalomedullary nail stabilization of her left hip. Given the patient's dementia, her daughter and power of attorney lawyer consented for surgery after discussing the risks, benefits, and alternatives to surgical intervention. Operative Report: The patient was brought to the operating room on 08/07/16. She was met in the preoperative holding area where her operative extremity was marked and she was evaluated by anesthesia. She was then taken the operating room. A timeout procedure was performed in which the patient, operative extremity, and surgical procedure were verified. The patient was then placed under general anesthesia with an LMA. 2 g of Ancef were administered for surgical prophylaxis. An SCD was applied to the nonoperative right calf. The patient was then moved to the operating room table. The left lower leg was placed in a well-padded traction boot and the right leg was supported over a well leg segovia. A peroneal post was used to stabilize the pelvis. The patient's upper extremities were supported and well padded. Once position on the operating room table, fluoroscopy was used to verify the intertrochanteric fracture on the AP and lateral views. The left hip was placed under gentle traction and internal rotation for reduction of the intertrochanteric hip fracture. The left hip was prepped and draped in the usual sterile fashion. A surgical alfonso was performed, and fluoroscopy was again used to verify the anatomic landmarks. A 5 cm incision was made proximal to the greater trochanter. This is taken through the skin and subcutaneous tissues down to the tensor fascia julieth which was divided. The greater trochanter was palpable and noted to be split very comminuted. A guidepin was placed in the tip of the greater trochanter. Its position was verified in both the AP and lateral planes using fluoroscopy. Given the amount of comminution as well as the softness of the patient's bone and the pin was gently pushed into place. An opening reamer was used to very gently opening canal, followed by placement of a ball-tipped guidewire down the femoral shaft to the level of the superior patella. The placement of the wire was confirmed on AP and lateral views. A size 10 reamer was placed over the wire, pushed past the fracture site, and used to carefully ream the canal. This was repeated with a size 11mm reamer followed by an 11.5 mm reamer. A guide was then used to measure the length of the wire and a 10 x 340 mm nail was selected. The nail was carefully placed over the guidewire and positioned. A lateral guide was used to verify the position of the lag screw on the AP plane. Small incision was made in the lateral thigh and through the iliotibial band. The guide was then placed down to bone and a threaded guidewire was passed across the fracture site, along the femoral neck, and into the femoral head. The position of the wire was verified on the AP and lateral views. It was placed caudally on the AP and as close to center-center as possible on the lateral. This was measured at 90 mm. A reamer was then taken over the threaded guidewire to a depth of 90 mm. This was done under fluoroscopy to verify the position. A 90 mm lag screw was then placed over the threaded guidewire and taken down into position. The location of the lag screw was verified on the AP and lateral planes. Once positioned in locking screw was placed in the proximal end of the nail to lock the lag screw in place. The guides were removed and the position of the lag screw verified. The proximal guide was then removed from the nail, and our attention was turned to the distal interlocking screw. We are able to obtain a perfect lateral of the nail using fluoroscopy. The static and dynamic holes were visualized. Using the perfect little shell tribe technique, an incision was made in the distal lateral femur overlying the proximal aspect of the dynamic hole. Incision was taken to the skin and subcutaneous tissues and through the iliotibial band. A 4.5 mm drill was selected and taken across the distal interlock. This was completed using a mallet. A guide was then used and measured approximately 35 mm. An additional 2.5 mm was added and a screw of 37.5 mm x 5 mm was selected. This was then placed and verified with fluoroscopy. Final x-rays were obtained in the proximal and distal aspects of the cephalomedullary nail in both the AP and lateral planes. The wounds were copiously irrigated with normal saline and closed using 0 Vicryl, 2-0 Vicryl, and evelin for skin. The incisions were dressed with sterile Xeroform, gauze, and secured with Tegaderm. The patient was then transferred from the operating room table to the hospital bed. She was transported from the OR to the recovery room in stable condition.
--- NOTE | 2016-08-07 16:11 | PN- Orthopedic ---
Subjective Subjective: Post op check: Patient received back on telemtry floor following ORIF left hip for intertrochanteric fracture. She tolerated the procedure well and appears to be in no acute distress. She is resting comfortably, non-verbal at the present time. Objective Vital Signs and I&Os Vital Signs Date Time Temp Pulse Resp B/P Pulse O2 O2 Flow FiO2 Ox Delivery Rate 08/07 0808 96.7 59 16 120/58 96 Room Air 08/07 0638 98.0 08/07 0040 97.8 63 20 120/58 92 Nasal 2.0L Cannula 08/06 1751 96 Nasal 2.0L Cannula 08/06 1636 97.9 71 20 140/70 92 Nasal 2.0L Cannula Intake & Output 08/07 1600 08/07 0800 08/07 0000 08/06 1600 08/06 0808/06 0000 Intake Total 100 750 400 760 Output Total 200 250 250 125 300 Balance -200 -150 500 275 460 Intake, IV 350 400 400 Intake, Oral 100 400 360 Output, Urine 200 250 250 125 300 Patient 120 lb Weight Physical Exam: General: No distress, non-verbal, unable to assess orientation Cardiac: RRR, s1s2 Pulm: CTA bilaterally Abdomen: NOn-distended Extremties: Skin warm and well perfused, DP pulses palpable bilaterally. Bilateral calves soft and non-tender. Surgical site; Left thigh, dressing dry and intact, thigh compartment soft. Assessment/Plan Assessment/Plan This is a 89 year old female with a pmh significant for dementia, afib, htn,chf, who underwent an ORIF of her left hip intertrochanteric fracture. -Primary management per medicine team -Restart nydiais for anticoagulation for afib tomorrow am -ALPS for dvt ppx today -TTWB as tolerated -OOB with PT tomorrow -Ancef for abx ppx -Advance diet as tolerated -Will d/w Dr. Plata
[2016-08-07 16:14] VITALS: BP 92/50
--- NOTE | 2016-08-07 19:04 | PN- Cardiology ---
Subjective Subjective: The patient is doing well status post ORIF of the left hip. She complains of discomfort at the surgical site. No chest pain. No shortness of breath. No diaphoresis. No palpitations. No lightheadedness or dizziness. Objective Vital Signs and I&Os Vital Signs Date Time Temp Pulse Resp B/P Pulse O2 O2 Flow FiO2 Ox Delivery Rate 08/07 1614 92/50 08/07 0808 96.7 59 16 120/58 96 Room Air 08/07 0638 98.0 08/07 0040 97.8 63 20 120/58 92 Nasal 2.0L Cannula Intake & Output 08/07 0800 08/07 0000 08/06 1600 08/06 0800 08/06 0000 Intake Total 100 750 400 760 Output Total 200 250 250 125 300 Balance -200 -150 500 275 460 Intake, IV 350 400 400 Intake, Oral 100 400 360 Output, Urine 200 250 250 125 300 Patient 120 lb Weight Physical Exam: Gen: NAD HEENT: normal Lungs: clear to auscultation, normal resp. effort Heart: RRR, S1, S2, no murmurs Abdomen: Soft, nontender, no masses Extremities: No clubbing, cyanosis, or edema. Neuro: Alert and oriented x 3, cranial nerves intact Current Medications: Current Medications Sig/Abhijeet Start time Last Medication Dose Route Stop Time Status Admin Acetaminophen 1,000 MG .STK-MED ONE 08/07 1006 DC IV 08/07 1007 Acetaminophen 650 MG Q8P PRN 08/06 1430 AC PO Acetaminophen 1,000 MG Q8 08/06 1400 AC 08/07 N/A 1 UNIT IV 1523 Alprazolam 0.5 MG AT BEDTIME 08/06 2200 AC 08/06 PO 08/13 2158 2124 Apixaban 2.5 MG BID 08/08 1000 AC PO Atenolol 100 MG DAILY 08/05 1000 AC 08/06 PO 1252 Atorvastatin Calcium 40 MG 1700 08/05 1700 AC 08/06 PO 1622 Cefazolin Sodium 2 GM IQ8 08/07 1600 AC 08/07 N/A 1 UNIT IV 08/08 0029 1659 Diltiazem HCl 180 MG DAILY 08/05 1000 AC 08/06 PO 1252 Fentanyl Citrate 200 MCG .STK-MED ONE 08/07 1006 DC IM 08/07 1007 Heparin Sodium 5,000 UNIT Q8 08/05 1400 AC 08/06 (Porcine) SC 08/07 2300 2126 Mirtazapine 15 MG QPM 08/05 2200 AC 08/06 PO 212 Multivitamins 1 TAB DAILY 08/06 1000 AC 08/06 Therapeutic PO 1252 Ondansetron HCl 4 MG .STK-MED ONE 08/07 1006 DC IM 08/07 1007 Patient Medication 1 UNIT ONE NR 08/07 1615 DC Teaching ED 08/07 1630 Ramelteon 8 MG AT BEDTIME 08/06 2199 AC 08/06 PO 212 Results Last 48 Hrs of Labs/Mics: Laboratory Tests 08/07/16 1240: CBC w Diff NO MAN DIFF REQ, RBC 3.21 L, MCV 79.2 L, MCH 25.1 L, RDW 17.5 H, MPV 10.1, Gran % 80.7 H, Lymphocytes % 5.6 L, Monocytes % 6.4, Eosinophils % 6.7 H, Basophils % 0.6, Absolute Granulocytes 14.7 H, Absolute Lymphocytes 1.0 L, Absolute Monocytes 1.2 H, Absolute Eosinophils 1.2, Absolute Basophils 0.1, PUBS MCHC 31.7 L 08/07/16 0633: Anion Gap 10, Estimated GFR 52 L, BUN/Creatinine Ratio 27.0 H, Glucose 98, Calcium 8.9, Total Bilirubin 0.7, AST 26, ALT 27, Alkaline Phosphatase 92, Total Protein 6.7, Albumin 2.9 L, Globulin 3.8, Albumin/Globulin Ratio 0.8 L, CBC w Diff NO MAN DIFF REQ, RBC 3.88 L, MCV 79.1 L, MCH 25.6 L, RDW 18.1 H, MPV 10.0, Gran % 68.3, Lymphocytes % 8.2 L, Monocytes % 7.6, Eosinophils % 15.3 H, Basophils % 0.6, Absolute Granulocytes 9.0 H, Absolute Lymphocytes 1.1 L, Absolute Monocytes 1.0 H, Absolute Eosinophils 2.0, Absolute Basophils 0.1, PUBS MCHC 32.3 L 08/06/16 0641: Troponin I Cancelled 08/06/16 0600: Anion Gap 7, Estimated GFR 59 L, BUN/Creatinine Ratio 28.9 H, Glucose 121 H, Calcium 9.0, Total Bilirubin 0.7, AST 26, ALT 27, Alkaline Phosphatase 90, Troponin I 0.03, Total Protein 6.7, Albumin 2.9 L, Globulin 3.8, Albumin/ Globulin Ratio 0.8 L, CBC w Diff NO MAN DIFF REQ, RBC 4.01 L, MCV 79.8 L, MCH 25.3 L, RDW 18.4 H, MPV 9.8, Gran % 78.0 H, Lymphocytes % 8.4 L, Monocytes % 6.3, Eosinophils % 6.9 H, Basophils % 0.4, Absolute Granulocytes 8.9 H, Absolute Lymphocytes 1.0 L, Absolute Monocytes 0.7 H, Absolute Eosinophils 0.8 , Absolute Basophils 0, PUBS MCHC 31.7 L 08/05/16 2018: Troponin I 0.04 Recent Imaging Studies: Echocardiogram 08/06/16: Normal size left ventricle. Mild concentric left ventricular hypertrophy. Normal left ventricular ejection fraction visually estimated at > 60%. Normal left ventricular diastolic filling pattern for age. Normal right ventricular size and function. Mild to moderate right atrial dilatation. Moderate to severe left atrial dilatation. Mild mitral regurgitation. Trace to mild aortic regurgitation. Mild tricuspid regurgitation. Mild pulmonary hypertension. Trace pulmonic regurgitation. Assessment/Plan Assessment/Plan Assessment: 1. Hypertension 2. Paroxysmal atrial fibrillation 3. Status post surgery for left hip fracture, stable postop. Recommendations: * Resume Eliquis starting tomorrow morning * Continue other cardiac medications Continue telemetry? Yes
[2016-08-08 00:45] VITALS: BP 100/54
[2016-08-08 07:45] VITALS: BP 98/50
[2016-08-08 08:29] LABS: ABSOLUTE BASOPHIL COUNT 0 /CUMM (0.0-0.2); ABSOLUTE GRANULOCYTE CT 8.6 /CUMM (1.4-6.5); ABSOLUTE LYMPH COUNT 1.1 /CUMM (1.2-3.4); ABSOLUTE MONOCYTE COUNT 0.7 /CUMM (0.10-0.60); BASOPHIL % 0.2 % (0.0-2.0); GRANULOCYTE % 69.3 % (42.2-75.2); MEAN CORPUSCULAR HGB 25.6 PG (27.0-31.0); MEAN CORPUSCULAR HGB CONC 31.9 G/DL (33.0-37.0); MEAN CORPUSCULAR VOLUME 80.2 FL (81.0-99.0); MEAN PLATELET VOLUME 9.5 FL (7.4-10.4); PLATELET COUNT 234 /CUMM (130-400); RBC DISTRIBUTION WIDTH 17.9 % (11.5-14.5); RED BLOOD CELL CT 2.99 /CUMM (4.20-5.40); WHITE BLOOD CELL COUNT 12.4 /CUMM (4.8-10.8)
--- NOTE | 2016-08-08 08:44 | PN- Orthopedic ---
See Addendum Subjective Subjective: POD#1 s/p L [facility] Pt offers no complaints, but history is limited due to baseline dementia. She nods and states "yes" or "no" when questioned, but not appropriately. She made poor progress with PT today, only able to roll in bed. Not OOB as of yet. Objective Vital Signs and I&Os Vital Signs Date Time Temp Pulse Resp B/P Pulse O2 O2 Flow FiO2 Ox Delivery Rate 08/08 0745 97.0 76 16 98/50 94 Nasal 2.0L Cannula 08/08 0045 97.6 78 20 100/54 95 Nasal Cannula 08/08 0000 Nasal 2.0L Cannula 08/07 1630 97.0 75 20 93 Nasal 2.0L Cannula 08/07 1614 92/50 08/07 1600 92 Nasal 2.0L Cannula Intake & Output 08/08 1600 08/08 0800 08/08 0000 08/07 1600 08/07 0800 08/07 0000 Intake Total 700 100 0 100 Output Total 125 300 200 200 250 Balance 575 -200 -200 -200 -150 Intake, IV 0 Intake, Oral 100 100 0 100 Intake, 600 TPN/PPN Number 0 Bowel Movements Output, Urine 125 300 200 200 250 Patient 120 lb Weight Physical Exam: Gen: Pt is resting, but arousable. Opens her eyes, but unable to follow commands. Ext: L thigh dressing is c/d/i. Thigh is soft and with moderated edema, as expected postoperatively. Her foot is warm. Unable to perform strength exam due to baseline dementia. Assessment/Plan Assessment/Plan Pt is an 89 yo F with a hx of dementia, hx cva, htn, chf, afib (on eliquis) who is now POD #1 s/p L [facility] for hip fracture after unwitnessed fall. Plan: -Pain control. Limit narcotics if possible due to dementia. -Advance diet as tolerated. Encourage po fluid intake. Pt may need assistance with this. Urine output was low overnight. Continue to monitor with leon. Low rate IVF's until improved. -Continue PT, although anticipate slow progress. Ok to Non-weight bearing or Toe touch only. -Plan for dressing change tomorrow, POD #2. -Continue Eliquis for afib and DVT ppx. -Prophylactic antibiotics complete. -Medical management per primary team.
[2016-08-08 09:19] LABS: EOSINOPHIL % 16.3 % (0-5)
[2016-08-08 10:30] VITALS: BP 110/50
--- NOTE | 2016-08-08 11:41 | PN- Gen Med ---
Assessment/Plan Assessment: Patient is 89-year-old female with past medical history of hypertension, atrial fibrillation on and liquids, advanced dementia. Most of the history was obtained from her daughter Jyotsna who is also the power of assistant district attorney. The daughter stated that over the course of last couple months despite having bedrails they have noticed that Mrs. Romero does try and climb out of bed and attempt unsafe ambulation. The patient was found downstairs on the kitchen floor after they heard someone falling. Upon arriving to the kitchen, they noticed that her mom was lying on the floor next to the kitchen sink. Her only complaint of the time was left hip pain. She was unsure as to how she got there. Denied any head strike or loss of consciousness however the validity of this statement should be taken with a grain of salt considering the fact that she does have advanced dementia. Labs and vitals as above Imaging done during hospital stay Cervical and head CT 1. No acute intracranial pathology. Sinus disease of the sphenoid sinuses bilateral 2. No CT evidence of acute cervical spine fracture or traumatic subluxation. Multilevel degenerative spondylosis of cervical spine. Left hip/femur/pelvis x-ray Comminuted intratrochanteric fracture of left femur. Plan - Post operative Period - * Patient is comfortable and denies of any pain * We will give Tylenol as needed and avoid opioid * We will restart Eliquis 2.5 milligrams twice a day * ALP S for DVT prophylaxis * PT/OOB Atrial fibrillation on Eliquis - * We will continue telemetry monitoring * We will restart patient on tablet Eliquis 2.5 mgs twice a day * We will continue tablet Cardizem CD 180mg PO OD * We will follow cardiology recommendation Hypertension - We will continue tablet, atenolol 100 milligrams PO OD Hyperlipidemia - We will continue tablet atorvastatin 40 milligrams once a day Acute blood loss anemia, monitor cbc tomorrow watch for electrolytes. Diet -heart healthy diet DVT prophylaxis -Eliquis CODE STATUS-DNR/DNI Problem List: 1. DVT prophylaxis 2. Atrial fibrillation 3. Intertrochanteric fracture of left hip DVT/Prophylaxis: pharmacological Consulting Request: Consulting Physician: ortho and cardiology Subjective Follow-up For: POD#1 intertrochaentric fracture. Complaints: pt unable to provide hx, no complaints Review of Systems Constitutional: Denies: no symptoms, chills, diaphoresis, fever. EENTM: Denies: no symptoms. Cardiovascular: Denies: no symptoms. Respiratory: Denies: no symptoms. Gastrointestinal: Denies: no symptoms. Genitourinary: Denies: no symptoms. Musculoskeletal: Denies: no symptoms. Skin: Denies: no symptoms. Neurological/Psychological: Denies: no symptoms. Hematologic/Endocrine: Denies: bruising, bleeding. Immunologic/Allergic: Denies: no symptoms. Objective Last 24 Hrs of Vital Signs/I&O Vital Signs Date Time Temp Pulse Resp B/P Pulse O2 O2 Flow FiO2 Ox Delivery Rate 08/08 0745 97.0 76 16 98/50 94 Nasal 2.0L Cannula 08/08 0045 97.6 78 20 100/54 95 Nasal Cannula 08/08 0000 Nasal 2.0L Cannula 08/07 1630 97.0 75 20 93 Nasal 2.0L Cannula 08/07 1614 92/50 08/07 1600 92 Nasal 2.0L Cannula Intake & Output 08/08 1600 08/08 0800 08/08 0000 Intake Total 700 100 Output Total 125 300 Balance 575 -200 Intake, Oral 100 100 Intake, 600 TPN/PPN Output, Urine 125 300 Physical Exam General Appearance: Alert, Cooperative, No Acute Distress Skin: No Rashes, No Breakdown HEENT: PERRLA Neck: Supple, No JVD Cardiovascular: Regular Rate, No Murmurs, Gallops Lungs: Clear to Auscultation Abdomen: Normal Bowel Sounds, Soft, No Tenderness Neurological: Normal Gait (nothing significant) Extremities: No Edema, Normal Pulses Vascular: Normal Pulses Breasts: Breast appear nl
[2016-08-08 16:30] VITALS: BP 90/42
--- NOTE | 2016-08-08 19:00 | RADIOLOGY REPORT ---
EXAMINATION: XR HIP, LEFT CLINICAL INFORMATION: Open reduction internal fixation left hip fracture COMPARISON: Recent preoperative images TECHNIQUE: Intraoperative fluoroscopy was utilized for open reduction internal fixation of the left hip by Ivy Plata and Rick Mak. 2 minutes 5 seconds of fluoroscopy time was utilized. FINDINGS: 39 hardcopy images were obtained demonstrating the previously demonstrated intertrochanteric fracture with improved anatomic alignment compared to the preoperative images. Images demonstrate placement of an intramedullary gloria through the midshaft femur with compression hip screw placed into the femoral head. Single locking screw is seen through the intramedullary gloria in the distal femoral metaphysis. Final images demonstrate essentially anatomic alignment to the intratrochanteric fracture. IMPRESSION: Essentially anatomic alignment status post open reduction internal fixation with compression hip screw.
[2016-08-08 23:56] VITALS: BP 116/60
--- NOTE | 2016-08-09 07:45 | PN- Orthopedic ---
Subjective Subjective: The patient was seen this morning postoperatively day #2. She is demented and nonverbal at the current time but easily arousable and seemed comfortable. Objective Vital Signs and I&Os Vital Signs Date Time Temp Pulse Resp B/P Pulse O2 O2 Flow FiO2 Ox Delivery Rate 08/09 0000 93 Nasal 2.0L Cannula 08/08 2356 99.4 78 20 116/60 98 Nasal Cannula 08/08 1630 98.1 87 20 90/42 93 Nasal 2.0L Cannula 08/08 1600 92 Nasal 3.0L Cannula 08/08 1030 80 110/50 08/08 0745 97.0 76 16 98/50 94 Nasal 2.0L Cannula Intake & Output 08/09 0800 08/09 0000 08/08 1600 08/08 0800 08/08 0000 08/07 1600 Intake Total 540 800 900 700 100 0 Output Total 250 125 300 200 Balance 540 550 900 575 -200 -200 Intake, IV 300 600 400 0 Intake, Oral 240 200 500 100 100 0 Intake, 600 TPN/PPN Number 1 2 1 0 Bowel Movements Output, Urine 250 125 300 200 Patient 120 lb Weight Physical Exam: Gen.: Easily arousable but nonverbal this morning. Skin: Warm and dry Extremities: Bilateral lower extremities are warm without calf tenderness or significant edema. Gross motor and sensory are intact. Left hip surgical incisions were clean, dry, and intact without signs of infection. Assessment/Plan Assessment/Plan Assessment: 89-year-old female status post left femoral IMH S postoperative day #2. From orthopedic standpoint the patient is progressing as expected and she appears comfortable. Recommendations: Out of bed with physical therapy patient is toe-touch weightbearing if able to participate. If the patient is unable at least attempt range of motion at bedside. Continue Eliquis Daily dry dressing changes Continue current pain regiment limiting narcotics Bowel regiment Continue care per primary team
--- NOTE | 2016-08-09 07:49 | PN- Housestaff ---
DANG KNIGHT 08/09/16 0749: Subjective Follow-up For: Left hip fracture Acute blood loss anemia Subjective: Patient is seen and examined. She looks comfortable. She has been on Tylenol for pain control. This morning her hemoglobin has been dropped from 7.7-6.8. She will be transfused 2 units of blood. Consent obtained by daughter over the phone. Vitals reviewed stable. She is saturating 98 on 3 L nasal cannula. Review of Systems Constitutional: Reports: see HPI. Objective Last 24 Hrs of Vital Signs/I&O Vital Signs Date Time Temp Pulse Resp B/P Pulse O2 O2 Flow FiO2 Ox Delivery Rate 08/09 0808 98.1 68 20 100/50 98 Nasal 3.0L Cannula 08/09 0000 93 Nasal 2.0L Cannula 08/08 2356 99.4 78 20 116/60 98 Nasal Cannula 08/08 1630 98.1 87 20 90/42 93 Nasal 2.0L Cannula 08/08 1600 92 Nasal 3.0L Cannula Intake & Output 08/09 1600 08/09 0800 08/09 0000 Intake Total 540 800 Output Total 250 Balance 540 550 Intake, IV 300 600 Intake, Oral 240 200 Number 1 2 Bowel Movements Output, Urine 250 Physical Exam General Appearance: alert, awake, oriented to self Skin: No Rashes HEENT: Atraumatic Neck: Supple Cardiovascular: Normal S1, Normal S2 Lungs: Normal Air Movement Abdomen: Soft, No Tenderness Neurological: Normal Tone Extremities: No Edema Current Medications: Current Medications Sig/Abhijeet Start time Last Medication Dose Route Stop Time Status Admin Acetaminophen 650 MG Q8P PRN 08/06 1430 AC PO Acetaminophen 1,000 MG Q8 08/06 1400 AC 08/09 N/A 1 UNIT IV 0559 Alprazolam 0.5 MG AT BEDTIME 08/06 2200 AC 08/08 PO 08/139 2110 Apixaban 2.5 MG BID 08/08 1000 AC 08/08 PO 2102 Atenolol 100 MG DAILY 08/05 1000 AC 08/08 PO 1034 Atorvastatin Calcium 40 MG 1700 08/05 1700 AC 08/08 PO 1728 Bisacodyl 10 MG DAILY PRN 08/08 1115 AC CO Diltiazem HCl 180 MG DAILY 08/05 1000 AC 08/08 PO 1035 Lidocaine 1 PAT DAILY 08/08 1700 AC 08/08 EXT 1728 Mirtazapine 15 MG QPM 08/050 AC 08/08 PO 210 Multivitamins 1 TAB DAILY 08/06 1000 AC 08/08 Therapeutic PO 1035 Ramelteon 8 MG AT BEDTIME 08/06 2199 AC 08/08 PO 210 Sodium Chloride 1,000 ML Q13H 08/08 1200 DC 08/08 IV 08/09 0000 1250 Last 24 Hrs of Lab/Fidel Results Last 24 Hrs of Labs/Mics: Laboratory Tests 08/09/16 0635: Anion Gap 4 L, Estimated GFR 59 L, BUN/Creatinine Ratio 34.4 H, CBC w Diff NO MAN DIFF REQ, RBC 2.70 L, MCV 79.1 L, MCH 25.5 L, RDW 17.5 H, MPV 9.5, Gran % 90.8 H, Lymphocytes % 3.1 L, Monocytes % 4.4, Eosinophils % 1.7, Basophils % 0 L, Absolute Granulocytes 14.9 H, Absolute Lymphocytes 0.5 L, Absolute Monocytes 0.7 H, Absolute Eosinophils 0.3, Absolute Basophils 0, PUBS MCHC 32.2 L Assessment/Plan Assessment: Patient is 89-year-old female with past medical history of hypertension, atrial fibrillation on and liquids, advanced dementia. Most of the history was obtained from her daughter Jyotsna who is also the power of regulatory attorney. The daughter stated that over the course of last couple months despite having bedrails they have noticed that Mrs. Romero does try and climb out of bed and attempt unsafe ambulation. The patient was found downstairs on the kitchen floor after they heard someone falling. Upon arriving to the kitchen, they noticed that her mom was lying on the floor next to the kitchen sink. Her only complaint of the time was left hip pain. She was unsure as to how she got there. Denied any head strike or loss of consciousness however the validity of this statement should be taken with a grain of salt considering the fact that she does have advanced dementia. Labs and vitals as above Imaging done during hospital stay Cervical and head CT 1. No acute intracranial pathology. Sinus disease of the sphenoid sinuses bilateral 2. No CT evidence of acute cervical spine fracture or traumatic subluxation. Multilevel degenerative spondylosis of cervical spine. Left hip/femur/pelvis x-ray Comminuted intratrochanteric fracture of left femur. Plan - Left hip fracture status post repair Postoperative the patient seems comfortable. She is unable to communicate about her pain given her dementia. She is on Tylenol by mouth every 8 when necessary and Tylenol thousand milligrams every 8 [id number]. Will avoid narcotics. Lidocaine patch for pain. Paroxysmal atrial fibrillation Patient is on by mouth Cardizem 180 mg daily and requests 2.5 twice a day. Patient is continued on Eliquis post surgery. Cardiology consult service on board. Echo obtained on 08/06/16 was significant for Normal left ventricular ejection fraction visually estimated at > 60%. Hypertension - We will continue tablet, atenolol 100 milligrams PO OD Hyperlipidemia - We will continue tablet atorvastatin 40 milligrams once a day Acute blood loss anemia Hemoglobin dropped this morning to 6.8, given the acuity of nature probably is acute blood loss anemia. Will transfuse with 2 units of blood. Surgical site does not seem to be losing any blood. Will get stool guaiac and continue to monitor. Diet -heart healthy diet DVT prophylaxis -Eliquis CODE STATUS-DNR/DNI Problem List: 1. Intertrochanteric fracture of left hip Pain Ratin Pain Location: Patient is unable to communicate but it is at the site of surgery left hip Pain Goal: Pain 4 or less Pain Plan: Tylenol when necessary for pain Tomorrow's Labs & Rationales: CBC Consulting Request: Consulting Physician: ortho and cardiology SHELLY SCHOFIELD 08/09/16 1013: Attending MD Review Statement Attending Statement Attending MD Statement: examined this patient, discuss w/resident/PA/EVENT SPECIALIST, agreed w/resident/PA/EVENT SPECIALIST, discussed with family, reviewed EMR data (avail), discussed with nursing, discussed with case mgmt, reviewed images Attending Assessment/Plan: Patient is 89-year-old female with past medical history of hypertension, atrial fibrillation on and liquids, advanced dementia. Most of the history was obtained from her daughter Jyotsna who is also the power of regulatory attorney. The daughter stated that over the course of last couple months despite having bedrails they have noticed that Mrs. Romero does try and climb out of bed and attempt unsafe ambulation. The patient was found downstairs on the kitchen floor after they heard someone falling. Upon arriving to the kitchen, they noticed that her mom was lying on the floor next to the kitchen sink. Her only complaint of the time was left hip pain. She was unsure as to how she got there. Denied any head strike or loss of consciousness however the validity of this statement should be taken with a grain of salt considering the fact that she does have advanced dementia. Labs and vitals as above Imaging done during hospital stay Cervical and head CT 1. No acute intracranial pathology. Sinus disease of the sphenoid sinuses bilateral 2. No CT evidence of acute cervical spine fracture or traumatic subluxation. Multilevel degenerative spondylosis of cervical spine. Left hip/femur/pelvis x-ray Comminuted intratrochanteric fracture of left femur. Plan - S/P orhto eval and Fixation of inter-trochanetric fracture. * Tylenol as needed and avoid opioid * Eliquis for DVT prophylaxis * PT/OOB Atrial fibrillation on Eliquis - * Cardizem CD 180mg PO OD,follow cardiology recommendation Hypertension - We will continue tablet, atenolol 100 milligrams PO OD Hyperlipidemia - We will continue tablet atorvastatin 40 milligrams once a day Acute blood loss anemia post op, Transfuse PRBC, monitor cbc. watch for electrolytes. Dementia: supportive care. Diet -heart healthy diet DVT prophylaxis -Eliquis CODE STATUS-DNR/DNI
[2016-08-09 07:50] LABS: ABSOLUTE BASOPHIL COUNT 0 /CUMM (0.0-0.2); ABSOLUTE EOSINOPHIL COUNT 0.3 /CUMM (0.0-0.7); ABSOLUTE GRANULOCYTE CT 14.9 /CUMM (1.4-6.5); BASOPHIL % 0 % (0.0-2.0); EOSINOPHIL % 1.7 % (0-5)
[2016-08-09 08:08] VITALS: BP 100/50
[2016-08-09 08:13] LABS: ABSOLUTE LYMPH COUNT 0.5 /CUMM (1.2-3.4); ABSOLUTE MONOCYTE COUNT 0.7 /CUMM (0.10-0.60); GRANULOCYTE % 90.8 % (42.2-75.2); HEMATOCRIT 21.3 % (37-47); MEAN CORPUSCULAR HGB 25.5 PG (27.0-31.0); MEAN CORPUSCULAR HGB CONC 32.2 G/DL (33.0-37.0); MEAN CORPUSCULAR VOLUME 79.1 FL (81.0-99.0); MEAN PLATELET VOLUME 9.5 FL (7.4-10.4); PLATELET COUNT 224 /CUMM (130-400); RBC DISTRIBUTION WIDTH 17.5 % (11.5-14.5)
[2016-08-09 08:41] LABS: WHITE BLOOD CELL COUNT 16.4 /CUMM (4.8-10.8)
[2016-08-09 16:50] VITALS: BP 118/60
--- NOTE | 2016-08-09 18:46 | PN- Cardiology ---
Subjective Subjective: Resting and without complaints. Remains in sinus rhythm with a heart rate of 66-80 bpm. Objective Vital Signs and I&Os Vital Signs Date Time Temp Pulse Resp B/P Pulse O2 O2 Flow FiO2 Ox Delivery Rate 08/09 1650 98.4 83 20 118/60 99 Nasal 2.0L Cannula 08/09 1221 Nasal 2.0L Cannula 08/09 1218 Nasal 2.0L Cannula 08/09 0808 98.1 68 20 100/50 98 Nasal 3.0L Cannula 08/09 0800 98 Nasal 3.0L Cannula 08/09 0000 93 Nasal 2.0L Cannula 08/08 2356 99.4 78 20 116/60 98 Nasal Cannula Intake & Output 08/09 1600 08/09 0800 08/09 0000 08/08 1600 08/08 0800 08/08 0000 Intake Total 540 800 900 700 100 Output Total 150 250 125 300 Balance -150 540 550 900 575 -200 Intake, IV 300 600 400 Intake, Oral 240 200 500 100 100 Intake, 600 TPN/PPN Number 1 1 2 1 Bowel Movements Output, Urine 150 250 125 300 Physical Exam: Well-developed, well-nourished elderly female in no acute distress. Vital signs: See above. Lungs: Clear to auscultation bilaterally. Heart: S1, S2 with no murmur, gallop, or rub appreciated. Extremities: No edema. Current Medications: Current Medications Sig/Abhijeet Start time Last Medication Dose Route Stop Time Status Admin Acetaminophen 650 MG Q8P PRN 08/06 1430 AC PO Acetaminophen 1,000 MG Q8 08/06 1400 AC 08/09 N/A 1 UNIT IV 0559 Alprazolam 0.5 MG AT BEDTIME 08/06 2200 AC 08/08 PO 08/13 2159 2110 Apixaban 2.5 MG BID 08/08 1000 AC 08/08 PO 210 Atenolol 100 MG DAILY 08/05 1000 AC 08/08 PO 1034 Atorvastatin Calcium 40 MG 1700 08/05 1700 AC 08/08 PO 1728 Bisacodyl 10 MG DAILY PRN 08/08 1115 AC AK Diltiazem HCl 180 MG DAILY 08/05 1000 AC 08/08 PO 1035 Lidocaine 1 PAT DAILY 08/08 1700 AC 08/08 EXT 1728 Mirtazapine 15 MG QPM 08/05 2200 AC 08/08 PO 2102 Multivitamins 1 TAB DAILY 08/06 1000 AC 08/08 Therapeutic PO 1035 Ramelteon 8 MG AT BEDTIME 08/06 2200 AC 08/08 PO 210 Sodium Chloride 1,000 ML Q13H 08/08 1200 DC 08/08 IV 08/09 0000 1250 Results Last 48 Hrs of Labs/Mics: Laboratory Tests 08/09/16 0635: Anion Gap 4 L, Estimated GFR 59 L, BUN/Creatinine Ratio 34.4 H, CBC w Diff NO MAN DIFF REQ, RBC 2.70 L, MCV 79.1 L, MCH 25.5 L, RDW 17.5 H, MPV 9.5, Gran % 90.8 H, Lymphocytes % 3.1 L, Monocytes % 4.4, Eosinophils % 1.7, Basophils % 0 L, Absolute Granulocytes 14.9 H, Absolute Lymphocytes 0.5 L, Absolute Monocytes 0.7 H, Absolute Eosinophils 0.3, Absolute Basophils 0, PUBS MCHC 32.2 L 08/08/16 0720: Anion Gap 5, Estimated GFR 52 L, BUN/Creatinine Ratio 25.0, Phosphorus 3.9, Magnesium 1.7, CBC w Diff NO MAN DIFF REQ, RBC 2.99 L, MCV 80.2 L, MCH 25.6 L , RDW 17.9 H, MPV 9.5, Gran % 69.3, Lymphocytes % 8.6 L, Monocytes % 5.6, Eosinophils % 16.3 H, Basophils % 0.2, Absolute Granulocytes 8.6 H, Absolute Lymphocytes 1.1 L, Absolute Monocytes 0.7 H, Absolute Eosinophils 2.0, Absolute Basophils 0, PUBS MCHC 31.9 L Assessment/Plan Assessment/Plan Mrs. Aceves as an elderly female with a history of HTN, stroke 10/2015, PAF on chronic anticoagulation, and dementia who is POD #2 s/p left hip cephalomedullary nail stabilization for comminuted intertrochanteric hip fracture sustained during an unwitnessed fall. Her rhythm has been stable, but she has had a significant drop in her H/H (6.9/ 21.3). She is in the process of being transfused her second unit of PRBCs and a follow up H/H is planned for later this evening. Would consider a repeat CXR in a.m. Fortunately, she is not in atrial fibrillation at this time. Orthopedic surgery will determine when to restart anticoagulation. Continue telemetry? Yes
[2016-08-10 00:49] VITALS: BP 114/58
--- NOTE | 2016-08-10 07:30 | PN- Housestaff ---
See Addendum Subjective Follow-up For: ORIF left hip Acute blood loss anemia Subjective: Patient is seen and examined today. She seems to be doing well. She had abdominal distention and had a large bowel movement later this afternoon. Patient has dementia and does not complain of any pain. Her hemoglobin improved to 9.9 this morning from 6.9 after getting 2 units of blood. Review of Systems Constitutional: Reports: see HPI. Objective Last 24 Hrs of Vital Signs/I&O Vital Signs Date Time Temp Pulse Resp B/P Pulse O2 O2 Flow FiO2 Ox Delivery Rate 08/10 0907 98.1 77 20 120/60 95 Nasal 2.0L Cannula 08/10 0842 95 Nasal 2.0L Cannula 08/10 0049 98.2 85 20 114/58 94 Nasal Cannula 08/10 0000 Nasal 2.0L Cannula 08/09 1650 98.4 83 20 118/60 99 Nasal 2.0L Cannula 08/09 1600 97 Nasal 2.0L Cannula Intake & Output 08/10 1600 08/10 0800 08/10 0000 Intake Total 520 450 Output Total 401 75 Balance 119 375 Intake, IV 400 400 Intake, Oral 120 50 Number 1 Bowel Movements Output, Stool 1 Output, Urine 400 75 Physical Exam General Appearance: Alert, Oriented X3, Cooperative, No Acute Distress Skin: No Rashes, No Breakdown HEENT: Atraumatic Neck: Supple Cardiovascular: Normal S1, Normal S2 Lungs: Normal Air Movement Abdomen: Soft, No Tenderness Neurological: Normal Speech, Normal Tone Extremities: No Edema, Normal Pulses Vascular: Pulses Symmetrical Current Medications: Current Medications Sig/Abhijeet Start time Last Medication Dose Route Stop Time Status Admin Acetaminophen 650 MG Q8H 08/10 1430 AC PO Acetaminophen 1,000 MG Q8P PRN 08/10 1006 AC N/A 1 UNIT IV Acetaminophen 650 MG Q8P PRN 08/06 1430 DC 08/10 PO 0823 Acetaminophen 1,000 MG Q8 08/06 1400 DC 08/10 N/A 1 UNIT IV 0631 Alprazolam 0.5 MG AT BEDTIME 08/06 2200 AC 08/08 PO 08/13 2159 2110 Apixaban 2.5 MG BID 08/08 1000 AC 08/10 PO 0944 Atenolol 100 MG DAILY 08/05 1000 AC 08/10 PO 0944 Atorvastatin Calcium 40 MG 1700 08/05 1700 AC 08/08 PO 1728 Bisacodyl 10 MG DAILY PRN 08/08 1115 AC MN Diltiazem HCl 180 MG DAILY 08/05 1000 AC 08/10 PO 0945 Lidocaine 1 PAT 08/10 AC EXT Lidocaine 1 PAT DAILY 08/08 1700 DC 08/09 EXT 1932 Mirtazapine 15 MG QPM 08/05 2200 AC 08/08 PO 2102 Multivitamins 1 TAB DAILY 08/06 1000 AC 08/08 Therapeutic PO 1035 Patient Medication 1 ED ONE ONE 08/10 1400 DC Teaching ED 08/10 1401 Ramelteon 8 MG AT BEDTIME 08/06 2199 AC 08/08 PO 2102 Last 24 Hrs of Lab/Fidel Results Last 24 Hrs of Labs/Mics: Laboratory Tests 08/10/16 0650: Anion Gap 3 L, Estimated GFR > 60, BUN/Creatinine Ratio 38.8 H, Total Bilirubin 1.0, Direct Bilirubin 0.5 H, AST 64 H, ALT 40, Alkaline Phosphatase 172 H, Total Protein 5.1 L, Albumin 2.1 L, CBC w Diff NO MAN DIFF REQ, RBC 3.57 L, MCV 83.5, MCH 27.6, RDW 17.5 H, MPV 9.8, Gran % 71.1, Lymphocytes % 9.7 L, Monocytes % 6.6, Eosinophils % 12.4 H, Basophils % 0.2, Absolute Granulocytes 9.1 H, Absolute Lymphocytes 1.2, Absolute Monocytes 0.8 H, Absolute Eosinophils 1.6, Absolute Basophils 0, PUBS MCHC 33.1 Assessment/Plan Assessment: ids, advanced dementia. Most of the history was obtained from her daughter Jyotsna who is also the power of associate attorney. The daughter stated that over the course of last couple months despite having bedrails they have noticed that Mrs. Romero does try and climb out of bed and attempt unsafe ambulation. The patient was found downstairs on the kitchen floor after they heard someone falling. Upon arriving to the kitchen, they noticed that her mom was lying on the floor next to the kitchen sink. Her only complaint of the time was left hip pain. She was unsure as to how she got there. Denied any head strike or loss of consciousness however the validity of this statement should be taken with a grain of salt considering the fact that she does have advanced dementia. Labs and vitals as above Imaging done during hospital stay Cervical and head CT 1. No acute intracranial pathology. Sinus disease of the sphenoid sinuses bilateral 2. No CT evidence of acute cervical spine fracture or traumatic subluxation. Multilevel degenerative spondylosis of cervical spine. Left hip/femur/pelvis x-ray Comminuted intratrochanteric fracture of left femur. Plan - Left hip fracture status post repair Patient had a ORIF of left hip by Dr. Plata after cardiology clearence. Postoperative the patient seems comfortable. She is unable to communicate about her pain given her dementia. She is on Tylenol by mouth every 8 hrs RTC and Tylenol thousand milligrams every 8 hours prn. Patient should avoid narcotics due to underlying dementia. Lidocaine patch is provided for the pain for pain. Paroxysmal atrial fibrillation Patient is on by mouth Cardizem 180 mg daily and ELiquis 2.5 twice a day. Patient is continued on Eliquis post surgery. Cardiology consult service was on board. Echo obtained on 08/06/16 was significant for Normal left ventricular ejection fraction visually estimated at > 60%. Hypertension - She was continued on atenolol 100 milligrams PO OD Hyperlipidemia - She was continued on atorvastatin 40 milligrams once a day Acute blood loss anemia Hemoglobin dropped on 08/09/16 to 6.8, given the acuity of nature probably is acute blood loss anemia, there is no overt bleeding at the surgical site. She is s/p transfusion with 2 units of blood. On 08/10/16 Hb is 9.9. Patient should get a repeat CBC in 3 days i.e 08/13/16 Problem List: 1. Intertrochanteric fracture of left hip Pain Ratin Pain Location: Left hip Pain Goal: Pain 4 or less Pain Plan: Tylenol [id number] Tomorrow's Labs & Rationales: none Consulting Request: Consulting Physician: ortho and cardiology
--- NOTE | 2016-08-10 07:44 | PN- Orthopedic ---
See Addendum Subjective Subjective: NAEO. Patient without new c/o. Pain controlled. Denies numbness/tingling in LLE. Tolerating PO. Working with PT but tolerating poorly and will require STR. Denies CP/SOB. Objective Vital Signs and I&Os Vital Signs Date Time Temp Pulse Resp B/P Pulse O2 O2 Flow FiO2 Ox Delivery Rate 08/10 0049 98.2 85 20 114/58 94 Nasal Cannula 08/10 0000 Nasal 2.0L Cannula 08/09 1650 98.4 83 20 118/60 99 Nasal 2.0L Cannula 08/09 1600 97 Nasal 2.0L Cannula 08/09 1221 Nasal 2.0L Cannula 08/09 1218 Nasal 2.0L Cannula 08/09 0808 98.1 68 20 100/50 98 Nasal 3.0L Cannula 08/09 0800 98 Nasal 3.0L Cannula Intake & Output 08/10 0800 08/10 0000 08/09 1600 08/09 0800 08/09 0000 08/08 1600 Intake Total 520 450 540 800 900 Output Total 401 75 150 250 Balance 119 375 -150 540 550 900 Intake, IV 400 400 300 600 400 Intake, Oral 120 50 240 200 500 Number 1 1 1 2 1 Bowel Movements Output, Stool 1 Output, Urine 400 75 150 250 Physical Exam: General: NAD, comfortable, A&Ox3 Chest: NRD. RRR. Abdomen: soft, nontender, nondistended. Ext: Left hip incisions intact without surrounding erythema, swelling, signs of infection. No calve swelling/TTP, neurovascularly intact bilateral lower extremities Current Medications: Current Medications Sig/Abhijeet Start time Last Medication Dose Route Stop Time Status Admin Acetaminophen 650 MG Q8P PRN 08/06 1430 AC PO Acetaminophen 1,000 MG Q8 08/06 1400 AC 08/10 N/A 1 UNIT IV 0631 Alprazolam 0.5 MG AT BEDTIME 08/06 2200 AC 08/08 PO 08/13 2158 2110 Apixaban 2.5 MG BID 08/08 1000 AC 08/08 PO 2102 Atenolol 100 MG DAILY 08/05 1000 AC 08/08 PO 1034 Atorvastatin Calcium 40 MG 1700 08/05 1700 AC 08/08 PO 1728 Bisacodyl 10 MG DAILY PRN 08/08 1115 AC KS Diltiazem HCl 180 MG DAILY 08/05 1000 AC 08/08 PO 1035 Lidocaine 1 PAT DAILY 08/08 1700 AC 08/09 EXT 1932 Mirtazapine 15 MG QPM 08/05 2199 AC 08/08 PO 210 Multivitamins 1 TAB DAILY 08/06 1000 AC 08/08 Therapeutic PO 1035 Ramelteon 8 MG AT BEDTIME 08/06 2199 AC 08/08 PO 2101 Results Last 48 Hours of Labs: Laboratory Tests 08/10 08/09 0650 0635 Chemistry Sodium (137 - 145 mmol/L) 137 136 L Potassium (3.5 - 5.1 mmol/L) 4.0 4.0 Chloride (98 - 107 mmol/L) 106 105 Carbon Dioxide (22 - 30 mmol/L) 29 28 Anion Gap (5 - 16) 3 L 4 L BUN (7 - 17 mg/dL) 31 H 31 H Creatinine (0.5 - 1.0 mg/dL) 0.8 0.9 Estimated GFR (>60 ml/min) > 60 59 L BUN/Creatinine Ratio (7 - 25 %) 38.8 H 34.4 H Hematology CBC w Diff Pending NO MAN DIFF REQ WBC (4.8 - 10.8 /CUMM) Pending 16.4 H RBC (4.20 - 5.40 /CUMM) Pending 2.70 L Hgb (12.0 - 16.0 G/DL) Pending 6.9 *L Hct (37 - 47 %) Pending 21.3 L MCV (81.0 - 99.0 FL) Pending 79.1 L MCH (27.0 - 31.0 PG) Pending 25.5 L RDW (11.5 - 14.5 %) Pending 17.5 H Plt Count (130 - 400 /CUMM) Pending 224 MPV (7.4 - 10.4 FL) Pending 9.5 Gran % (42.2 - 75.2 %) 90.8 H Lymphocytes % (20.5 - 51.1 %) 3.1 L Monocytes % (1.7 - 9.3 %) 4.4 Eosinophils % (0 - 5 %) 1.7 Basophils % (0.0 - 2.0 %) 0 L Absolute Granulocytes (1.4 - 6.5 /CUMM) 14.9 H Absolute Lymphocytes (1.2 - 3.4 /CUMM) 0.5 L Absolute Monocytes (0.10 - 0.60 /CUMM) 0.7 H Absolute Eosinophils (0.0 - 0.7 /CUMM) 0.3 Absolute Basophils (0.0 - 0.2 /CUMM) 0 PUBS MCHC (33.0 - 37.0 G/DL) Pending 32.2 L Assessment/Plan Assessment/Plan 89yo F POD#3 s/p left hip IMHS. AVSS. Stable from orthopedic standpoint. - pain control - PT, TTWB - Diet as tolerated - A/C - Care per primary team - f/u with Dr. Plata in office, call to schedule appointment - Ortho to sign off. Please contact with questions
--- NOTE | 2016-08-10 08:02 | Patient Discharge Instructions ---
Discharge Instructions General Discharge Information Special Instructions: Please call for a follow up appointment with PCP within 7 days of discharge. Acute Coronary Syndrome Inclusion Criteria At DC or during hospital stay patient has or had the following: ACS DIAGNOSIS No Discharge Core Measures Meds if any: Prescribed or Continued at Discharge Meds if any: NOT Prescribed or Continued at Discharge Congestive Heart Failure Inclusion Criteria At DC or during hospital stay patient has or had the following: CHF DIAGNOSIS No Discharge Core Measures Meds if any: Prescribed or Continued at Discharge Meds if any: NOT Prescribed or Continued at Discharge Cerebrovascular accident Inclusion Criteria At DC or during hospital stay patient has or had the following: CVA/TIA Diagnosis No Discharge Core Measures Meds if any: Prescribed or Continued at Discharge Meds if any: NOT Prescribed or Continued at Discharge Venous thromboembolism Inclusion Criteria VTE Diagnosis No VTE Type NONE VTE Confirmed by (Test) NONE Discharge Core Measures - Per Current guidelines, there needs to be overlap - treatment for the first 5 days of Warfarin therapy. - If discharged on Warfarin prior to 5 days of - overlap therapy, the patient will need to be - assessed for post discharge needs including - *Post discharge parental anticoagulation - *Warfarin and/or parental anticoagulation education - *Follow up date to check INR post discharge At least 5 days overlap therapy as Inpatient No Meds if any: Prescribed or Continued at Discharge Note: Overlap Therapy is Warfarin and Anticoagulant Meds if any: NOT Prescribed or Continued at Discharge
[2016-08-10 08:07] LABS: ABSOLUTE BASOPHIL COUNT 0 /CUMM (0.0-0.2); ABSOLUTE EOSINOPHIL COUNT 1.6 /CUMM (0.0-0.7); ABSOLUTE GRANULOCYTE CT 9.1 /CUMM (1.4-6.5); ABSOLUTE LYMPH COUNT 1.2 /CUMM (1.2-3.4); ABSOLUTE MONOCYTE COUNT 0.8 /CUMM (0.10-0.60); BASOPHIL % 0.2 % (0.0-2.0); EOSINOPHIL % 12.4 % (0-5); GRANULOCYTE % 71.1 % (42.2-75.2); MEAN CORPUSCULAR HGB 27.6 PG (27.0-31.0); MEAN CORPUSCULAR HGB CONC 33.1 G/DL (33.0-37.0); MEAN PLATELET VOLUME 9.8 FL (7.4-10.4); PLATELET COUNT 212 /CUMM (130-400); RBC DISTRIBUTION WIDTH 17.5 % (11.5-14.5); WHITE BLOOD CELL COUNT 12.9 /CUMM (4.8-10.8)
[2016-08-10 08:39] LABS: HEMATOCRIT 29.8 % (37-47); MEAN CORPUSCULAR VOLUME 83.5 FL (81.0-99.0); RED BLOOD CELL CT 3.57 /CUMM (4.20-5.40)
[2016-08-10 09:07] VITALS: BP 120/60
--- NOTE | 2016-08-10 09:38 | Discharge Summary ---
See Addendum Visit Information Visit Dates Admission Date: 08/05/16 Discharge Date: 08/10/16 Hospital Course Course Attending Physician: ROXANNA OZUNA MD Primary Care Physician: COBY BOLANOS MD Consulting Request: Consulting Physician: ortho and cardiology Hospital Course: Patient is 89-year-old female with past medical history of hypertension, atrial fibrillation on and liquids, advanced dementia. Most of the history was obtained from her daughter Jyotsna who is also the power of pelt inspector. The daughter stated that over the course of last couple months despite having bedrails they have noticed that Mrs. Roemro does try and climb out of bed and attempt unsafe ambulation. The patient was found downstairs on the kitchen floor after they heard someone falling. Upon arriving to the kitchen, they noticed that her mom was lying on the floor next to the kitchen sink. Her only complaint of the time was left hip pain. She was unsure as to how she got there. Denied any head strike or loss of consciousness however the validity of this statement should be taken with a grain of salt considering the fact that she does have advanced dementia. Labs and vitals as above Imaging done during hospital stay Cervical and head CT 1. No acute intracranial pathology. Sinus disease of the sphenoid sinuses bilateral 2. No CT evidence of acute cervical spine fracture or traumatic subluxation. Multilevel degenerative spondylosis of cervical spine. Left hip/femur/pelvis x-ray Comminuted intratrochanteric fracture of left femur. Plan - Left hip fracture status post repair Patient had a ORIF of left hip by Dr. Tellez after cardiology clearence. Postoperative the patient seems comfortable. She is unable to communicate about her pain given her dementia. She is on Tylenol by mouth every 8 hrs RTC and Tylenol thousand milligrams every 8 hours prn. Patient should avoid narcotics due to underlying dementia. Lidocaine patch is provided for the pain for pain. Paroxysmal atrial fibrillation Patient is on by mouth Cardizem 180 mg daily and ELiquis 2.5 twice a day. Patient is continued on Eliquis post surgery. Cardiology consult service was on board. Echo obtained on 08/06/16 was significant for Normal left ventricular ejection fraction visually estimated at > 60%. Hypertension - She was continued on atenolol 100 milligrams PO OD Hyperlipidemia - She was continued on atorvastatin 40 milligrams once a day Acute blood loss anemia Hemoglobin dropped on 08/09/16 to 6.8, given the acuity of nature probably is acute blood loss anemia, there is no overt bleeding at the surgical site. She is s/p transfusion with 2 units of blood. On 08/10/16 Hb is 9.9. Patient should get a repeat CBC in 3 days i.e 08/13/16 Allergies: Coded Allergies: codeine (UNKNOWN 07/29/15) Disposition Summary Disposition Principal Diagnosis: Left hip fracture s/p repair Additional Diagnosis: as above Discharge Disposition: SNF Discharge Instructions General Discharge Information Code Status: Do Not Resucitate/Intubat Patient's Diet: heart healthy/ regular consistency Patient's Activity: as tolerated Follow-Up Instructions/Appts: Please follow up with PCP and Dr. tellez upon discharge. Medications at Discharge Discharge Medications: Stop taking the following medications: Hydrochlorothiazide (Hydrochlorothiazide) 12.5 MG CAPSULE ORAL DAILY Qty = 30 Continue taking these medications: Atenolol (Atenolol) 100 MG TABLET 1 Tablet ORAL DAILY Comments: NOT GIVEN IN HOSPITAL. Aspirin (Children's Aspirin) 81 MG CTB 81 Milligram ORAL DAILY Qty = 30 Atorvastatin Calcium (Lipitor) 40 MG TAB 40 Milligram ORAL 5 PM Qty = 30 Cholecalciferol (Vitamin D3) 1,000 IU TAB 1,000 International Unit ORAL DAILY Qty = 30 Albuterol Sulfate (Proair Hfa) 8.5 GM HFA.AER.AD 2 Puff Inhale through mouth as needed for ASTHMA Qty = 85 Comments: PER PT DAUGHTERS Diltiazem HCl (Cardizem Cd) 120 MG CAP.ER.24H 180 Milligram ORAL DAILY Qty = 30 Acetaminophen (Tylenol) 325 MG TABLET 650 Milligram ORAL EVERY SIX HOURS NEEDED as needed for PAIN Days = 14 Ramelteon (Rozerem) 8 MG TABLET 8 Milligram ORAL AT BEDTIME Days = 30 Mirtazapine (Mirtazapine) 15 MG TABLET 1 Tablet ORAL Every night Qty = 30 Apixaban (Eliquis) 2.5 MG TABLET 1 Tablet ORAL TWICE DAILY Ibuprofen (Advil) 200 MG TABLET 200 Milligram ORAL EVERY 6 HOURS NEEDED Multivitamin (Multi-Day Vitamins) 1 EACH TABLET 1 Tablet ORAL DAILY Alprazolam (Xanax) 0.5 MG TABLET 1 Tablet ORAL TAKE AT BEDTIME as needed for INSOMINA Qty = 10 Start taking the following new medications: Lidocaine (Lidoderm) 5 % ADH..PATCH 1 Patch ON SKIN DAILY Qty = 10 No Refills Copies To: KANWAL PEPE,SHELLY; LATRICE PEPE,FLAVIO; CICI PEPE,COBY
--- NOTE | 2016-08-10 12:25 | PN- Cardiology ---
Subjective Subjective: No complaints and resting comfortably. Denies any chest discomfort, palpitations, shortness of breath, etc. Rhythm remains sinus with rates in the 80-90 bpm range. Objective Vital Signs and I&Os Vital Signs Date Time Temp Pulse Resp B/P Pulse O2 O2 Flow FiO2 Ox Delivery Rate 08/10 0907 98.1 77 20 120/60 95 Nasal 2.0L Cannula 08/10 0842 95 Nasal 2.0L Cannula 08/10 0049 98.2 85 20 114/58 94 Nasal Cannula 08/10 0000 Nasal 2.0L Cannula 08/09 1650 98.4 83 20 118/60 99 Nasal 2.0L Cannula 08/09 1600 97 Nasal 2.0L Cannula 08/09 1221 Nasal 2.0L Cannula Intake & Output 08/10 1600 08/10 0800 08/10 0000 08/09 1600 08/09 0800 08/09 0000 Intake Total 520 450 540 800 Output Total 401 75 150 250 Balance 119 375 -150 540 550 Intake, IV 400 400 300 600 Intake, Oral 120 50 240 200 Number 1 1 1 2 Bowel Movements Output, Stool 1 Output, Urine 400 75 150 250 Physical Exam: Well-developed, well-nourished elderly female in no acute distress. Vital signs: See above. Lungs: Clear to auscultation bilaterally. Heart: S1, S2 with no murmur, gallop, or rub appreciated. Extremities: No edema. Current Medications: Current Medications Sig/Abhijeet Start time Last Medication Dose Route Stop Time Status Admin Acetaminophen 650 MG Q8H 08/10 1430 AC PO Acetaminophen 1,000 MG Q8P PRN 08/10 1006 AC N/A 1 UNIT IV Acetaminophen 650 MG Q8P PRN 08/06 1430 DC 08/10 PO 0823 Acetaminophen 1,000 MG Q8 08/06 1400 DC 08/10 N/A 1 UNIT IV 0631 Alprazolam 0.5 MG AT BEDTIME 08/06 2200 AC 08/08 PO 08/13 2159 2110 Apixaban 2.5 MG BID 08/08 1000 AC 08/10 PO 0944 Atenolol 100 MG DAILY 08/05 1000 AC 08/10 PO 0944 Atorvastatin Calcium 40 MG 1700 08/05 1700 AC 08/08 PO 1728 Bisacodyl 10 MG DAILY PRN 08/08 1115 AC [place] Diltiazem HCl 180 MG DAILY 08/05 1000 AC 08/10 PO 0945 Lidocaine 1 PAT 2000 08/10 2000 AC EXT Lidocaine 1 PAT DAILY 08/08 1700 DC 08/09 EXT 1932 Mirtazapine 15 MG QPM 08/05 2199 AC 08/08 PO 2101 Multivitamins 1 TAB DAILY 08/06 1000 AC 08/08 Therapeutic PO 1035 Ramelteon 8 MG AT BEDTIME 08/06 2199 AC 08/08 PO 2101 Results Last 48 Hrs of Labs/Mics: Laboratory Tests 08/10/16 0650: Anion Gap 3 L, Estimated GFR > 60, BUN/Creatinine Ratio 38.8 H, Total Bilirubin 1.0, Direct Bilirubin 0.5 H, AST 64 H, ALT 40, Alkaline Phosphatase 172 H, Total Protein 5.1 L, Albumin 2.1 L, CBC w Diff NO MAN DIFF REQ, RBC 3.57 L, MCV 83.5, MCH 27.6, RDW 17.5 H, MPV 9.8, Gran % 71.1, Lymphocytes % 9.7 L, Monocytes % 6.6, Eosinophils % 12.4 H, Basophils % 0.2, Absolute Granulocytes 9.1 H, Absolute Lymphocytes 1.2, Absolute Monocytes 0.8 H, Absolute Eosinophils 1.6, Absolute Basophils 0, PUBS MCHC 33.1 08/09/16 0635: Anion Gap 4 L, Estimated GFR 59 L, BUN/Creatinine Ratio 34.4 H, CBC w Diff NO MAN DIFF REQ, RBC 2.70 L, MCV 79.1 L, MCH 25.5 L, RDW 17.5 H, MPV 9.5, Gran % 90.8 H, Lymphocytes % 3.1 L, Monocytes % 4.4, Eosinophils % 1.7, Basophils % 0 L, Absolute Granulocytes 14.9 H, Absolute Lymphocytes 0.5 L, Absolute Monocytes 0.7 H, Absolute Eosinophils 0.3, Absolute Basophils 0, PUBS MCHC 32.2 L Assessment/Plan Assessment/Plan Mrs. Aceves as an elderly female with a history of HTN, stroke 10/2015, PAF on chronic anticoagulation, and dementia who is POD #3 s/p left hip cephalomedullary nail stabilization for comminuted intertrochanteric hip fracture sustained during an unwitnessed fall. Her rhythm has been stable. Her H/H is stable at 9.9/29.8 following transfusion of PRBCs. Would consider a repeat CXR in a.m. Fortunately, she is not in atrial fibrillation at this time. Orthopedic surgery has given the go ahead to restart anticoagulation. Continue telemetry? Yes
--- NOTE | 2016-08-10 15:23 | RADIOLOGY REPORT ---
EXAMINATION: XR PORTABLE CHEST CLINICAL INFORMATION: Shortness of breath. COMPARISON: 08/05/2016 TECHNIQUE: Portable AP view of the chest was obtained. FINDINGS: Patient is slightly rotated to the right and the patient's chin projects over the right lung apex. Lungs are slightly hypoinflated. The new, hazy opacity at the left lung base is nonspecific and could represent mild atelectasis, small effusion and/or developing infiltrate. There is minimal linear, hazy opacity, likely atelectasis, at the extreme right lung base. Stable appearance of the enlarged cardiac silhouette and uncoiled, atherosclerotic aorta. Large hiatal hernia. Bone density is diffusely decreased. IMPRESSION: 1. Cardiomegaly without pulmonary edema. 2. Large hiatal hernia. 3. New, hazy opacity at the left lung base is nonspecific and could be secondary to small effusion, atelectasis or a developing groundglass infiltrate.
[2016-08-10 15:47] VITALS: BP 122/50
[2016-08-10 16:09] VITALS: BP 122/50
[2016-08-10] MEDS ORDERED: LIDODERM1 EACH EXT (16:14)
== END 2016-08-10 19:30 | DRG 481 ==
LOC: ENRESERVDT → ENRESERVTM → ERH 04:54 → 1NO 06:32 → ERHI 06:32 → ENPENDDIS 06:32 → ERH 06:32 → 1NO 06:32 → EDBEDREQ 08:11 → 1NO 10:29
PROVIDERS: Emergency Medicine; Internal Medicine; Internal Medicine Endocrinology, Diabetes & Metabolism; Nurse Practitioner; Orthopaedic Surgery Sports Medicine; ADMIT Internal Medicine
PROC: 0QH706Z Insertion of Intramedullary Internal Fixation Device into Left Upper Femur, Open Approach (ICD-10-PCS; principal; 2016-08-07)
PROC: 30233N1 Transfusion of Nonautologous Red Blood Cells into Peripheral Vein, Percutaneous Approach (ICD-10-PCS; 2016-08-07)
DX: S72.142A Displaced intertrochanteric fracture of left femur, initial encounter for closed fracture (principal); D62 Acute posthemorrhagic anemia; F03.90 Unspecified dementia, unspecified severity, without behavioral disturbance, psychotic disturbance, mood disturbance, and anxiety; I48.0 Paroxysmal atrial fibrillation; I69.320 Aphasia following cerebral infarction; Z79.01 Long term (current) use of anticoagulants; I10 Essential (primary) hypertension; E78.5 Hyperlipidemia, unspecified; W18.30XA Fall on same level, unspecified, initial encounter; Z91.81 History of falling; Y92.009 Unspecified place in unspecified non-institutional (private) residence as the place of occurrence of the external cause
CPT/HCPCS: 1NSP; 36415; 72170; 73502-LT; 73552; 81001; 82436; 86920; 87086; 93005; 93010; 93306; 97112-GO; 97161-GP; 97530-GO; J0131; J0690; J1644; J2405; J7042; P9016